=== PATIENT | male | born 1955 | race Caucasian/White ===

== ENCOUNTER 2023-03-13 10:52 | Outpatient (OUT) | payer BC, SELFPAY | END 2023-03-13 10:53 | disposition home or self-care (01) | LOC: LAB 10:57 | PROVIDERS: PCP Family Medicine; Visit Provider Urology | DX: C61 Malignant neoplasm of prostate (principal); N40.0 Benign prostatic hyperplasia without lower urinary tract symptoms | CPT/HCPCS: 36415; 84153 ==

== ENCOUNTER 2023-12-12 13:02 | Outpatient (OUT) | payer BC, SELFPAY ==
[2023-12-12 13:41] LABS: Basophils Absolute Auto 0.1 10^3/uL (0.0-0.1); Basophils Percent Auto 0.8 % (0.2-2.0); Eosinophils Absolute Auto 0.3 10^3/uL (0.0-0.7); Eosinophils Percent Auto 3.8 % (0.9-7.0); Hematocrit 43.9 % (42.0-54.0); Hemoglobin 14.7 g/dL (14.0-18.0); Immature Granulocytes Abs Auto 0.01 10^3/uL (0.00-0.03); Immature Granulocytes Pct Auto 0.1 % (0.0-0.5); Lymphocytes Absolute Auto 2.1 10^3/uL (1.2-3.8); Lymphocytes Percent Auto 25.2 % (20.5-60.0); Mean Corpuscular HGB Conc 33.5 g/dL (29.9-35.2); Mean Corpuscular Hemoglobin 29.9 pg (25.9-34.0); Mean Corpuscular Volume 89.4 fL (80.0-94.0); Mean Platelet Volume 10.1 fL (9.5-13.5); Monocytes Absolute Auto 0.5 10^3/uL (0.3-0.8); Monocytes Percent Auto 6.3 % (1.7-12.0); Neutrophils Absolute Auto 5.3 10^3/uL (1.4-6.5); Neutrophils Percent Auto 63.8 % (43.0-75.0); Platelet Count 248 10^3/uL (150-450); Red Blood Count 4.91 10^6/uL (4.70-6.10); Red Cell Distribution Width 13.1 % (11.0-15.0); White Blood Count 8.3 10^3/uL (4.0-11.0)
[2023-12-12 14:16] LABS: Estimated Average Glucose 123 mg/dL; Glycohemoglobin A1C 5.9 % (4.5-6.2)
[2023-12-12 14:28] LABS: Alanine Aminotransferase 36 U/L (16-63); Albumin Globulin Ratio 1.1; Albumin Level 4.1 g/dL (3.4-5.0); Alkaline Phosphatase 70 U/L (46-116); Aspartate Amino Transferase 18 U/L (15-37); BUN Creatinine Ratio 27.5; Bilirubin Direct 0.2 mg/dL (0.0-0.2); Bilirubin Total 0.9 mg/dL (0.2-1.0); Calcium 9.7 mg/dL (8.5-10.1); Carbon Dioxide 29.3 mmol/L (21.0-32.0); Chloride 102 mmol/L (98-107); Chol HDL Ratio 3.9; Cholesterol 181 mg/dL (<=200); Estimated GFR (African America >60 (>=60); Estimated GFR (Non-African Ame >60 (>=60); Globulin 3.6 g/dL; Glucose 106 mg/dL (74-106); HDL Cholesterol 46 mg/dL (40-60); LDL Cholesterol Calculated 123.6 mg/dL; Potassium 3.3 mmol/L (3.5-5.1); Sodium 140 mmol/L (136-145); Thyroid Stimulating Hormone 0.671 uIU/mL (0.358-3.740); Total Protein 7.7 g/dL (6.4-8.2); Triglycerides 57 mg/dL (<=150); VLDL CHOLESTEROL 11.4 mg/dL
== END 2023-12-12 13:03 | disposition home or self-care (01) ==
LOC: LAB 13:04
PROVIDERS: PCP Family Medicine; Visit Provider Family Medicine
DX: Z00.00 Encounter for general adult medical examination without abnormal findings (principal)
CPT/HCPCS: 36415; 80048; 80061; 80076; 83036; 84443; 85025

== ENCOUNTER 2025-01-23 10:41 | Outpatient (OUT) | payer BC, SELFPAY ==
--- OUTSIDE RECORDS SUMMARY | 2025-01-23 09:45 | XMS_ITS | Encounter Summary ---
Author Organization [facility] Address [address] [place] [address] Care Team Providers Care Can Washer Name Role Phone Bienvenido George MD Primary Care Provider [phone] Reason for Visit * Reason Comments Annual Exam wellness Encounter Details Date Type Department Care Team (Late st Contact Info) Description 01/23/2025 9:45 AM EDT Office Visit [facility] [address] [place] [address] Bienvenido George MD [address] [place] [address] Annual physical exam (Primary Dx) Social History Tobacco Use Types Packs/Day Years Used Date Smoking Tobacco: Never Smokeless Tobacco: Never Sex and Gender Information Value Date Recorded Sex Assigned at Not on file Legal Sex Male 9:50 PM EDT Gender Identity Not on file Sexual Orientation Not on file documented as of this encounter Last Filed Vital Signs Vital Sign Reading Time Taken Comments Blood Pressure 134/76 01/23/2025 9:49 AM EDT Pulse 72 01/23/2025 9:49 AM EDT Temperature 36.4 C (97.5 F) 01/23/2025 9:49 AM EDT Respiratory Rate 22 01/23/2025 9:49 AM EDT Oxygen Saturation 97% 01/23/2025 9:49 AM EDT Inhaled Oxygen Concentration - - Weight 87.5 kg (193 lb) 01/23/2025 9:49 AM EDT Height 175.3 cm (5' 9 ) 01/23/2025 9:49 AM EDT Body Mass Index 28.5 01/23/2025 9:49 AM EDT documented in this encounter Progress Notes * Bienvenido George MD - 01/23/2025 10:24 AM EDTAssociated Problem(s): Annual physical exam Due for labs. Discussed proper diet and regular aerobic exercise. Need aerobic exercise 5-6 days a week for 30 minutes at a time. Smaller portions and limit total calories. Colonoscopy every 10 years. Tetanus every 10 years. Advised not to smoke. * Bienvenido George MD - 01/23/2025 9:45 AM EDT Images from the original note were not included. Subjective Patient ID: Casimiro Crowley is a 69 y.o. male who presents for Annual Exam (wellness). Presents for annual PE. Patient feels well today. Weight down 3 pounds in past year. Active around house and with yard work. Tries to walk regularly. Changed diet and cut back on carbs. Tries to watch diet and eat healthy. Increased fruits and vegetables. Smaller portions and limits snacking. Triesto limit total daily calories. Due for labs. Checking BP PRN and typically controlled. BP normal today. Taking medication daily and tolerating without side effects. Following with urology for prostate cancer and had radiation. Doing well and PSA undetectable. Review of Systems Constitutional: Negative for fatigue. Respiratory: Negative for cough, shortness of breath and wheezing. Cardiovascular: Negative for chest pain and palpitations. Gastrointestinal: Negative for abdominal pain, diarrhea, nausea and vomiting. Genitourinary: Negative for dysuria. Objective Physical Exam Constitutional: General: He is not in acute distress. Appearance: Normal appearance. HENT: Head: Normocephalic. Right Ear: Tympanic membrane and ear canal normal. Left Ear: Tympanic membrane and ear canal normal. Eyes: Extraocular Movements: Extraocular movements intact. Pupils: Pupils are equal, round, and reactive to light. Cardiovascular: Rate and Rhythm: Normal rate and regular rhythm. Heart sounds: No murmur heard. No friction rub. No gallop. Pulmonary: Breath sounds: Normal breath sounds. No wheezing, rhonchi or rales. Abdominal: General: Bowel sounds are normal. There is no distension. Palpations: Abdomen is soft. Tenderness: There is no abdominal tenderness. There is no guarding or rebound. Musculoskeletal: General: Normal range of motion. Left lower leg: No edema. Neurological: General: No focal deficit present. Mental Status: He is alert. Cranial Nerves: No cranial nerve deficit. Deep Tendon Reflexes: Reflexes normal. Assessment/Plan Problem List Items Addressed This Visit Annual physical exam - Primary Due for labs. Discussed proper diet and regular aerobic exercise. Need aerobic exercise 5-6 days a week for 30 minutes at a time. Smaller portions and limit total calories. Colonoscopy every 10 years. Tetanus every 10 years. Advised not to smoke. Relevant Orders Hemoglobin A1c Basic metabolic panel CBC and differential Hepatic function panel Lipid panel TSH documented in this encounter Plan of Treatment Upcoming Encounters Date Type Department Care Team (Late st Contact Info) Description 01/26/2026 9:00 AM EDT Office Visit [facility] [address] [place] [address] Bienvenido George MD [address] [place] [address] Scheduled Orders Name Type Priority Associated Diagnoses Orde r Schedule Hemoglobin A1c Lab Routine Annual physical exam Expected: 01/23/2025 (Approximate), Expires: 01/23/2026 Basic metabolic panel Lab Routine Annual physical exam Expected: 01/23/2025 (Approximate), Expires: 01/23/2026 CBC and differential Lab Routine Annual physical exam Expected: 01/23/2025 (Approximate), Expires: 01/23/2026 Hepatic function panel Lab Routine Annual physical exam Expected: 01/23/2025 (Approximate), Expires: 01/23/2026 Lipid panel Lab Routine Annual physical exam Expected: 01/23/2025 (Approximate), Expires: 01/23/2026 TSH Lab Routine Annual physical exam Expected: 01/23/2025 (Approximate), Expires: 01/23/2026 documented as of this encounter Visit Diagnoses Diagnosis Annual physical exam- Primary Routine general medical examination at a health care facility documented in this encounter Additional Health Concerns Assessment Noted Time PHQ-9 Depression Total Score: 0 12/12/19 11:00 AM EDT documented as of this encounter Care Teams Can Washer Relationship Specialty Start Date End Date Bienvenido George MD [address] [place] [address] PCP - General Family Medicine 12/12/23 documented as of this encounter
--- OUTSIDE RECORDS SUMMARY | 2025-01-23 10:45 | XMS_ITS ---
Author Organization [facility] Address [address] [place], [place] [id number] Care Team Providers Care Operations Vocational Instructor Name Role Phone Omari Cb Mckeon Jr. Unavailable [phone] Bienvenido George MD Primary Care Provider [phone] Active Problems No known active problems Current Treatment and Therapy Plans No current plan information found. Past Treatment and Therapy Plans No past plan information found. Treatment Summaries Prostate cancer (HCC)* Treatment Summary and Survivorship Care Plan for Prostate Cancer Provided by: Brionna York APRN.BRUSH OR BROOM CUTTER General Information Patient Name: Casimiro Crowley Patient : 1955 Patient phone: Email: No e-mail address on record Health Care Providers Primary Care Provider: Bienvenido George MD Urologic Surgeon: Dr. Jean Marie Rosa; Dr. Cb Salcido Radiation Oncologist: Dr. Fredrick Moran Other Providers: Brionna York APRN.BRUSH OR BROOM CUTTER Treatment Summary Diagnosis Cancer Type: Adenocarcinoma of the Prostate Location: Left mid; Right mid Diagnosis Date (year): November 19, 2020 Histology Subtype: Prostate Cancer Stage:I; Clinical stage T1c, N0, M0 Dalton Score: 3+3=6 PSA at Diagnosis: 7.2 Clinical Trial: No Treatment Completed Surgery: Yes Surgery Date(s) (year): November 19, 2020 Surgical procedure/location/findings: Transrectal ultrasound biopsy; Left mid; Right mid; Adenocarcinoma of Prostate External beam radiation: No Brachytherapy to prostate: Yes: End Date (year): April 04, 2021 Prostate brachytherapy, I-125, 100 seeds, 145 Gy Systemic Therapy (chemotherapy, hormonal therapy, other): No Presistent symptoms or side effects at completion of treatment: No Follow-up Care Plan Schedule of clinical visits Coordinating Provider When/How often Dr. Fredrick Moran Every 6 months x2 years, then once yearly Dr. Cb Salcido Per Dr. Omari Rosa Per Dr. Rosa Cancer surveillance or other recommended related tests Coordinating Provider Test How Often Dr. Fredrick Moran PSA (Prostate Specific Antigen) Every 6 months x2 years, then once yearly Dr. Cb Salcido PSA (Prostate Specific Antigen) Per Dr. Omari Rosa PSA (Prostate Specific Antigen) Per Dr. Rosa Please continue to see your primary care provider for all general health care recommended for a (man) (women) your age, including cancer screening tests. Any symptoms should be brought to the attention of your provider: 1. Anything that represents a brand new symptom; 2. Anything that represents a persistent symptom; 3. Anything you are worried about that might be related to the cancer coming back. Possible late- and long-term effects that someone with this type of cancer and treatment may experience: Erectile dysfunction, Incontinence, Painful urination, Rectal pain, Shortening of the penis, Skin irritation or darkening, Sterility, Tirdness, Trouble voiding or passing uring (urinary retention), and Urinary frequency Cancer survivors may experience issues with the areas listed below. If you have any concerns in these or other areas, please speak with your doctors or nurses to find out how you can get help with them: anxiety or depression , emotional or mental health, fatigue, fertility, financial advice or assistance, insurance, memory or concentration loss, parenting, physicial functioning, school/work, and sexual functioning A number of lifestyle/behaviors can affect your ongoing health, including the risk for the cancer coming back or developing another cancer. Discuss these recommendations with your doctor or nurse: alcohol use, diet, management of medications, management of other illnesses, physical activity, sun screen use, tobacco use/cessation, and weight management (loss/gain) Resources you may be interested in: www.cancer.net [employer].com [employer] Facilities Manager Art Therapy Support Groups- Contact [employer] for dates and time. Prepared by: Brionna York APRN.BRUSH OR BROOM CUTTER Delivered on: October 14, 2021 - This Survivorship Care Plan is a cancer treatment summary and follow-up plan is provided to you to keep with your health care records and to share with your primary care provider. - This summary is a brief record of major aspects of your cancer treatment. You can share your copywith any of your doctors or nurses. However, this is not a detailed or comprehensive record of yourcare. Resolved Problems Problem Noted Date Diagnosed Date Resolved Date Prostate cancer 10/14/2021 04/19/2023
--- OUTSIDE RECORDS SUMMARY | 2025-01-23 10:45 | XMS_ITS | Encounter Summary ---
Author Organization [facility] Address [address] [place] [address] Care Team Providers Care Clinic Physician Director Name Role Phone Bienvenido George MD Primary Care Provider [phone] Encounter Details Date Type Department Care Team (Late st Contact Info) Description 01/23/2025 Bamboo flowsheet [facility] [address] [place] [id number] Bienvenido George MD [address] [place] [phone] Social History Tobacco Use Types Packs/Day Years Used Date Smoking Tobacco: Never Smokeless Tobacco: Never Sex and Gender Information Value Date Recorded Sex Assigned at Not on file Legal Sex Male 9:50 PM EDT Gender Identity Not on file Sexual Orientation Not on file documented as of this encounter Plan of Treatment Upcoming Encounters Date Type Department Care Team (Late st Contact Info) Description 01/26/2026 9:00 AM EDT [facility] [address] [place] [address] Bienvenido George MD [address] [place] [address] documented as of this encounter Visit Diagnoses Not on filedocumented in this encounter Additional Health Concerns Assessment Noted Time PHQ-9 Depression Total Score: 0 12/12/19 24 11:00 AM EDT documented as of this encounter Care Teams Clinic Physician Director Relationship Specialty Start Date End Date Bienvenido George MD [address] [place] [address] PCP - General Family Medicine 12/12/23 documented as of this encounter
--- OUTSIDE RECORDS SUMMARY | 2025-01-23 10:45 | XMS_ITS | Clinical Summary ---
Author Organization [facility] Address [address] [place], [place] [address] Care Team Providers Care Rn Home Care Name Role Phone Cb Salcido Jr. Unavailable [phone] Bienvenido George MD Primary Care Provider [phone] Allergies No known active allergies Medications amLODIPine (NORVASC) 10 mg tablet 11/16/2020 Active lisinopril-hydroCH LOROthiazide (PRINZIDE, ZESTORETIC) 20-25 mg per tablet 11/16/2020 Activ e Active Problems No known active problems Resolved Problems Problem Noted Date Diagnosed Date Resolved Date Prostate cancer 10/14/2021 04/19/2023 Immunizations Immunization Administration Dates Next Due COVID-19 original vaccine, f ull dose, monovalent (MODERNA) 12/11/2020,11/13/2020 Social History Tobacco Use Types Packs/Day Years Used Date Smoking Tobacco: Never Smokeless Tobacco: Never Tobacco Cessation:Counseling Given: Not Answered Alcohol Use Standard Drinks/Week Comments Yes 0 (1 standard drink = 0.6 oz pur e alcohol) social PHQ-2 Answer Date Recorded PHQ-2 score 0 04/10/2024 Area Deprivation Index Answer Date Ezekiel rded National Score (1-100), lower number is lower ri sk 76 04/12/2023 State Score (1-10), lower number is lower risk 6 04/12/2023 Data from: https://www.neighborhoodatlas.medicine.[facility].edu/. Last address used for calculation [address] 04/12/2023 Sex and Gender Information Value Date Recorded Sex Assigned at Not on file Legal Sex Male 11:37 AM EDT Gender Identity Not on file Sexual Orientation Not on file Last Filed Vital Signs Vital Sign Reading Time Taken Comments Blood Pressure 167/82 04/10/2024 9:48 AM EDT Pulse 76 04/10/2024 9:48 AM EDT Temperature 36.4 C (97.6 F) 04/10/2024 9:48 AM EDT Respiratory Rate 18 04/10/2024 9:48 AM EDT Oxygen Saturation 98% 04/10/2024 9:48 AM EDT Inhaled Oxygen Concentration - - Weight 88.6 kg (195 lb 5.2 oz) 04/10/2024 9:48 A M EDT Height 168.9 cm (5' 6.5 ) 12/30/2020 2:26 PM EDT Body Mass Index 31.05 12/30/2020 2:26 PM EDT Plan of Treatment Upcoming Encounters Date Type Department Care Team (Late st Contact Info) Description 04/09/2025 9:45 AM EDT Office Visit [facility] [address] [place] [address] [place] [address] lab 04/23/2025 10:15 AM EDT Office Visit Radiation Oncology [address] [address] Damien Moran MD [address] [place] [address] [place] [address] 1yr f/u psa here Health Maintenance Due Date Last Done Comments Anxiety Screening 02/24/1974 Depression Screening 02/24/1974 Hepatitis C Screening 02/24/1974 DTaP,Tdap,Td Vaccine (1 - Tdap) 02/24/1975 Lipid Screening 02/24/1991 CT Colonography 02/24/2001 Cologuard (FIT-DNA) 02/24/2001 Colonoscopy 02/24/2001 Colorectal Cancer Screening 02/24/2001 Diabetes Screening 02/24/2001 Fecal Occult Blood 02/24/2001 Sigmoidoscopy 02/24/2001 Pneumococcal Vaccine: 50+ (1 of 1 - PCV) 02/24/2006 Shingrix Vaccine (1 of 2) 02/24/2006 Covid-19 Vaccine (2023-2 5 season) 2024 06/04/2022, 12/18/2021, 06/18/2021, Additional history exists Advance Directive Discussion 07/24/2024 Influenza Vaccine (#1) 2025 Prostate Cancer Screening Discussion 03/19/2029 03/19/2024, 04/11/2022, 01/26/2022, Additional history exists RSV Vaccine (1 - 1-dose 75+ series) 02/24/2031 Procedures Procedure Name Priority Date/Time Associated Diagnosis Comments PSA/PROSTSPECAG DIAG Routine 03/19/2024 11:04 AM EDT History of prostate cancer from Last 3 Months or Most Recently Relevant to Health Maintenance Results * PSA/PROSTSPECAG DIAG (03/19/2024 11:04 AM EDT) PSA 0.17 <2.60 ng/mL 03/19/2024 6:37 PM EDT [facility] Comment:Total PSA test metho dology used is the Electrochemiluminescence Immunoassay by [employer]. Total PSA values by differing methodologies cannot be interchanged. Blood BLOOD SPECIMEN / Unknown Venipuncture / Unknown 03/19/2024 11:04 AM EDT 03/19/2024 11:04 AM EDT us G Will Moran MD LABORATORY Final Resul t [facility] [address] [address], [place] from Last 3 Months or Most Recently Relevant to Health Maintenance Insurance BLUE CARD PPO OOS Care Teams Rn Home Care Relationship Specialty Start Date End Date Naderer, Bienvenido A, MD [address] [place] [address] PCP - General Family Medicine 12/30/20 Cb Salcido Jr. [address] [place] [place] [address] Referring Urology 12/15/20
[2025-01-23 11:27] LABS: Hematocrit 45.0 % (42.0-54.0); Hemoglobin 15.2 g/dL (14.0-18.0); Immature Granulocytes Abs Auto 0.01 10^3/uL (0.00-0.03); Immature Granulocytes Pct Auto 0.2 % (0.0-0.5); Lymphocytes Absolute Auto 1.8 10^3/uL (1.2-3.8); Mean Corpuscular HGB Conc 33.8 g/dL (29.9-35.2); Mean Corpuscular Hemoglobin 30.3 pg (25.9-34.0); Mean Corpuscular Volume 89.6 fL (80.0-94.0); Platelet Count 241 10^3/uL (150-450); Red Blood Count 5.02 10^6/uL (4.70-6.10); White Blood Count 6.3 10^3/uL (4.0-11.0)
[2025-01-23 11:39] LABS: Alanine Aminotransferase 29 U/L (16-63); Albumin Globulin Ratio 1.1; Albumin Level 3.8 g/dL (3.4-5.0); Alkaline Phosphatase 67 U/L (46-116); Anion Gap 16.5; Aspartate Amino Transferase 16 U/L (15-37); Blood Urea Nitrogen 27.0 mg/dL (7.0-18.0); Calcium 9.4 mg/dL (8.5-10.1); Carbon Dioxide 25.3 mmol/L (21.0-32.0); Chloride 106 mmol/L (98-107); Cholesterol 164 mg/dL (<=200); Estimated GFR (African America >60 (>=60 mL/min/1.73m^2); Estimated GFR (Non-African Ame >60 (>=60 mL/min/1.73m^2); Globulin 3.6 g/dL; Glucose 112 mg/dL (74-106); HDL Cholesterol 46 mg/dL (40-60); Potassium 3.8 mmol/L (3.5-5.1); Sodium 144 mmol/L (136-145); Thyroid Stimulating Hormone 0.620 uIU/mL (0.358-3.740); Total Protein 7.4 g/dL (6.4-8.2); Triglycerides 63 mg/dL (<=150); VLDL CHOLESTEROL 12.6 mg/dL
== END 2025-01-23 10:42 | disposition home or self-care (01) ==
PROVIDERS: PCP Family Medicine; Visit Provider Family Medicine
DX: Z00.00 Encounter for general adult medical examination without abnormal findings (principal)
CPT/HCPCS: 36415; 80048; 80061; 80076; 83036; 84443; 85025

== ENCOUNTER 2025-04-03 10:03 | Outpatient (OUT) | payer BC, SELFPAY ==
--- OUTSIDE RECORDS SUMMARY | 2025-04-03 10:07 | XMS_ITS | Encounter Summary ---
Author Organization [facility] Address [address] [facility] [place] [address] Care Team Providers Care Shoulder Puncher Name Role Phone Bienvenido George MD Primary Care Provider [phone] Encounter Details Date Type Department Care Team (Late st Contact Info) Description 01/23/2025 Results Follow-Up [facility] [place] [facility] [address] [facility] [address] [place] [address] Bienvenido George MD [address] [place] [address] ALL CBC WITH AUTO DIFF, HMHP LIVER PANEL, ALL BASIC METABOLIC PANEL, Additional followed-up results: 3 Social History Tobacco Use Types Packs/Day Years Used Date Smoking Tobacco: Never Smokeless Tobacco: Never Sex and Gender Information Value Date Recorded Sex Assigned at Not on file Legal Sex Male 9:50 PM EDT Gender Identity Not on file Sexual Orientation Not on file documented as of this encounter Plan of Treatment Not on file documented as of this encounter Visit Diagnoses Not on filedocumented in this encounter Additional Health Concerns Assessment Noted Time PHQ-9 Depression Total Score: 0 12/12/19 24 11:00 AM EDT documented as of this encounter Care Teams Shoulder Puncher Relationship Specialty Start Date End Date Bienvenido George MD PCP - General Family Medicine 12/12/23 documented as of this encounter
--- OUTSIDE RECORDS SUMMARY | 2025-04-03 10:07 | XMS_ITS | Clinical Summary ---
Author Organization [facility] Address [address] [place], [place] [address] Care Team Providers Care Calender Worker Helper Name Role Phone Cb Salcido Jr. Unavailable [phone] Bienvenido George MD Primary Care Provider [phone] Allergies No known active allergies Medications amLODIPine [...] is lower risk 6 04/12/2023 Data from: https://www.neighborhoodatlas.medicine.[facility].edu/. Last address used for calculation [address] [...] Care Team (Late st Contact Info) Description 04/23/2025 10:15 AM EDT Office Visit Radiation Oncology [address] [place] [address] Damien Moran MD [address] [place] [address] [place] [address] 1yr f/u psa here Health Maintenance Due Date Last Done Comments Anxiety Screening 02/24/1974 Depression Screening 02/24/1974 Hepatitis C Screening 02/24/1974 DTaP,Tdap,Td Vaccine (1 - Tdap) 02/24/1975 Lipid Screening 02/24/1991 CT Colonography 02/24/2001 Cologuard (FIT-DNA) 02/24/2001 Colonoscopy 02/24/2001 Colorectal Cancer Screening 02/24/2001 Fecal Occult Blood 02/24/2001 Sigmoidoscopy 02/24/2001 Pneumococcal Vaccine: 50+ (1 of 1 - PCV) 02/24/2006 Shingrix Vaccine (1 of 2) 02/24/2006 Advance Directive Discussion 07/24/2024 Influenza Vaccine (#1) 2025 Diabetes Screening 01/24/2028 01/23/2025 RSV Vaccine (1 - 1-dose 75+ series) 02/24/2031 Procedures Procedure Name Priority Date/Time Associated Diagnosis Comments PSA/PROSTSPECAG DIAG Routine 03/26/2025 2:40 PM EDT History of prostate cancer from Last 3 Months Results * PROSTATE-SPECIFIC ANTIGEN DIAGNOSTIC (03/26/2025 2:40 PM EDT) PSA 0.15 <2.60 ng/mL 03/27/2025 3:26 PM EDT [facility] Comment:Total PSA test metho dology used is the Electrochemiluminescence Immunoassay by [employer]. Total PSA values by differing methodologies cannot be interchanged. Blood BLOOD SPECIMEN / Unknown Venipuncture / Unknown 03/26/2025 2:40 PM EDT 03/26/2025 2:40 PM EDT us G Will Moran MD LABORATORY Final Resul t [facility] [address] [facility] [address] [place] [address], [place] from Last 3 Months Insurance BLUE CARD PPO OOS Care Teams Calender Worker Helper Relationship Specialty Start Date End Date Bienvenido George MD [address] [place] [address] PCP - General Family Medicine 12/30/20 Cb Salcido Jr. [address] [place] [address] Referring Urology 12/15/20
--- OUTSIDE RECORDS SUMMARY | 2025-04-03 10:07 | XMS_ITS | Clinical Summary ---
Author Organization [facility] Address [address] [place] [address] Care Team Providers Care Insurance Policy Issue Clerk Name Role Phone Bienvenido George MD Primary Care Provider [phone] Allergies No known active allergies Medications amLODIPine (Norvasc) 10 MG tabletIndications :Essential (primary) hypertension,[place] gn essential hypertension TAKE 1 TABLET BY MOUTH EVERY DAY 90 tablet 3 07/18/2024 Active lisinopril-hydroC HLOROthiazide 20-25 MG tabletIndications :Essential hypertension, benign TAKE 1 TABLET BY MOUTH EVERY DAY 90 tablet 3 01/28/2025 Active Active Problems Problem Noted Date Diagnosed Date Essential hypertension, benign 12/12/2023 Assessment & Plan (12/12/2023 12:13 PM EDT): BP controlled and monitor PRN. Prediabetes 12/12/2023 History of prostate cancer 12/12/2023 Assessment & Plan (12/12/2023 12:14 PM EDT): PSA undetectable and follow with urology. Annual physical exam 12/12/2023 Assessment & Plan (01/23/2025 10:24 AM EDT): Due for labs. Discussed proper diet and regular aerobic exercise. Need aerobic exercise 5-6 days a week for 30 minutes at a time. Smaller portions and limit total calories. Colonoscopy every 10 years. Tetanus every 10 years. Advised not to smoke. Assessment & Plan (12/12/2023 12:13 PM EDT): Due for labs. Discussed proper diet and regular aerobic exercise. Need aerobic exercise 5-6 days a week for 30 minutes at a time. Smaller portions and limit total calories. Colonoscopy every 10 years. Tetanus every 10 years. Advised not to smoke. Discussed daily Aspirin therapy. Encounters Date Type Department Care Team Description 01/28/2025 [facility] [address] [facility] [place] [phone] Bienvenido George MD Essential hypertension, benign 01/23/2025 9:45 AM EDT [facility] [address] [facility] [place] [address] Bienvenido George MD Annual physical exam (Primary Dx) 01/23/2025 Results Follow-Up [facility] [address] [facility] [place] [address] Bienvenido George MD ALL CBC WITH AUTO DIFF, HMHP LIVER PANEL, ALL BASIC METABOLIC PANEL, Additional followed-up results: 3 01/23/2025 Clinisync Result Encounter [facility] External Department Unsolicited Bienvenido George MD 01/23/2025 Bamboo flowsheet [facility] [address] [place] [phone] Bienvenido George MD from Last 3 Months Social History Tobacco Use Types Packs/Day Years Used Date Smoking Tobacco: Never Smokeless Tobacco: Never Tobacco Cessation:Counseling Given: Not Answered Sex and Gender Information Value Date Recorded [...] Mass Index 28.5 01/23/2025 9:49 AM EDT Plan of Treatment Health Maintenance Due Date Last Done Comments CT Colonography 1955 FIT-DNA 1955 FIT 1955 FOBT 1955 Sigmoidoscopy 1955 Pneumococcal Vaccine: 65+ Years (1 of 1 - PCV) 006 Influenza Vaccine (#1) 2025 Colonoscopy 06/10/2025 06/10/2015 Colorectal Cancer Screening 06/10/2025 Procedures Procedure Name Priority Date/Time Associated Diagnosis Comments TSH Routine 01/23/2025 12:38 PM EDT Annual physical exam LIPID PANEL Routine 01/23/2025 12:38 PM EDT Annual physical exam HEPATIC FUNCTION PANEL Routine 01/23/2025 12:38 PM EDT Annual physical exam CBC (INCLUDES DIFF/PLT) Routine 01/23/2025 12:38 PM EDT Annual physical exam BASIC METABOLIC PANEL Routine 01/23/2025 12:38 PM EDT Annual physical exam HEMOGLOBIN A1C Routine 01/23/2025 12:38 PM EDT Annual physical exam MLR HEMOGLOBIN A1C Routine 01/23/2025 11 :03 AM EDT ALL THYROID STIM HORMONE Routine 01/23/2025 11:03 AM EDT ALL LIPID PROFILE (FASTING) Routine 01/23/2025 11:03 AM EDT ALL BASIC METABOLIC PANEL Routine 01/23/2025 11:03 AM EDT HMHP LIVER PANEL Routine 01/23/2025 11:0 3 AM EDT ALL CBC WITH AUTO DIFF Routine 01/23/2025 11:03 AM EDT from Last 3 Months Results * CBC and differential (01/23/2025 12:38 PM EDT) Blood Venous blood specimen / Unknown Bienvenido George MD LAB BLOOD ORDERABLES Final Resul t Performing Organization Address [facility] de Phone Number [facility] * TSH (01/23/2025 12:38 PM EDT) Blood Venous blood specimen / Unknown Bienveindo George MD LAB BLOOD ORDERABLES Final Resul t Performing Organization Address [facility] de Phone Number [facility] * Hemoglobin A1c (01/23/2025 12:38 PM EDT) Blood Venous blood specimen / Unknown Bienvenido George MD LAB BLOOD ORDERABLES Final Resul t Performing Organization Address [facility] de Phone Number [facility] * Hepatic function panel (01/23/2025 12:38 PM EDT) Blood Venous blood specimen / Unknown Bienvenido George MD LAB BLOOD ORDERABLES Final Resul t Performing Organization Address [facility] de Phone Number [facility] * Lipid panel (01/23/2025 12:38 PM EDT) Blood Venous blood specimen / Unknown Bienvenido George MD LAB BLOOD ORDERABLES Final Resul t Performing Organization Address [facility] de Phone Number [facility] * Basic metabolic panel (01/23/2025 12:38 PM EDT) Blood Venous blood specimen / Unknown Bienvenido George MD LAB BLOOD ORDERABLES Final Resul t Performing Organization Address [facility] de Phone Number [facility] * MLR HEMOGLOBIN A1C (01/23/2025 11:03 AM EDT) GLYCOHEMOGLOBIN A1C 5.8 4.5 - 6.2 % TBH Comment: ADA RECOMMENDED LIMIT 4.0 - 6.0 ADA THERAPEUTIC TARGET < 7.0 ACTION SUGGESTED > 7.0 ESTIMATED AVERAGE GLUCOSE 120 mg/dL TBH 01/23/2025 11:0 3 AM EDT 01/23/2025 11:06 AM EDT Narrative CLINISYNC - 01/23/2025 11:45 AM EDT Bienvenido LEWISISYVIANCA Final Result Performing Organization Address [facility] Co de Phone Number CLINJOSUEMI TB * (ABNORMAL) [facility] LIVER PANEL (01/23/2025 11:03 AM EDT) BILIRUBIN TOTAL 1.1(H) 0.2 - 1.0 mg/dL TBH BILIRUBIN DIRECT 0.2 0.0 - 0.2 mg/dL TBH ASPARTATE AMINO TRANSFERASE 16 15 - 37 U/L TBH ALANINE AMINOTRANSFERASE 29 16 - 63 U/L TBH ALKALINE PHOSPHATASE 67 46 - 116 U/L TBH TOTAL PROTEIN 7.4 6.4 - 8.2 g/dL TBH ALBUMIN LEVEL 3.8 3.4 - 5.0 g/dL TBH GLOBULIN 3.6 g/dL TBH ALBUMIN GLOBULIN RATIO 1.1 TBH 01/23/2025 11:0 3 AM EDT 01/23/2025 11:06 AM EDT Narrative CLINISYNC - 01/23/2025 11:45 AM EDT Bienvenido HENLEY Final Result Performing Organization Address [facility] Co de Phone Number LESTERMI TB * ALL THYROID STIM HORMONE (01/23/2025 11:03 AM EDT) THYROID STIMULATING HORMONE 0.620 0.358 - 3.740 uIU/mL TBH 01/23/2025 11:0 3 AM EDT 01/23/2025 11:06 AM EDT Narrative CLINISYNC - 01/23/2025 11:45 AM EDT Bienvenido LEWISISYVIANCA Final Result Performing Organization Address [facility] Co de Phone Number CLINISYNC TB * ALL LIPID PROFILE (FASTING) (01/23/2025 11:03 AM EDT) TRIGLYCERIDES 63 <=150 mg/dL TBH CHOLESTEROL 164 <=200 mg/dL TB HDL CHOLESTEROL 46 40 - 60 mg/dL TB Comment: > or =60 mg/dl - LOW CARDIOVASCULAR RISK <40 mg/dl - HIGH CARDIOVASCULAR RISK LDL CHOLESTEROL CALCULATED 105.4 mg/dL TB Comment: <100 mg/dl OPTIMAL 100-129 mg/dl NEAR OR ABOVE OPTIMAL 130-159 mg/dl BORDERLINE HIGH 160-189 mg/dl HIGH >190 mg/dl VERY HIGH VLDL CHOLESTEROL 12.6 mg/dL TB CHOL HDL RATIO 3.6 TB Comment: 3.3 - 4.4 LOW RISK 4.4 - 7.1 AVERAGE RISK 7.1 - 11.0 MODERATE RISK >11.0 HIGH RISK 01/23/2025 11:0 3 AM EDT 01/23/2025 11:06 AM EDT Narrative CLINISYNC - 01/23/2025 11:45 AM EDT Bienvenido HENLEY Final Result Performing Organization Address [facility] de Phone Number CLINISYNC TB * (ABNORMAL) ALL CBC WITH AUTO DIFF (01/23/2025 11:03 AM EDT) TB WBC 6.3 4.0 - 11.0 10 3/uL TBH TB RBC 5.02 4.70 - 6.10 10 6/uL TBH TBH HGB 15.2 14.0 - 18.0 g/dL TB TB HCT 45.0 42.0 - 54.0 % TBH TBH MCV 89.6 80.0 - 94.0 fL TBH TBH MCH 30.3 25.9 - 34.0 pg TBH TBH MCHC 33.8 29.9 - 35.2 g/dL TB TB RDW 13.0 11.0 - 15.0 % TBH TBH PLT 241 150 - 450 10 3/uL TBH TBH MPV 10.3 9.5 - 13.5 fL TBH NEUTROPHILS PERCENT AUTO 54.6 43.0 - 75.0 % TBH LYMPHOCYTES PERCENT AUTO 28.5 20.5 - 60.0 % TBH MONOCYTES PERCENT AUTO 8.4 1.7 - 12.0 % TBH TBH EO % 7.4(H) 0.9 - 7.0 % TBH BASOPHILS PERCENT AUTO 0.9 0.2 - 2.0 % TBH IMMATURE GRANULOCYTES PCT AUTO 0.2 0.0 - 0.5 % TBH NEUTROPHILS ABSOLUTE AUTO 3.5 1.4 - 6.5 10 3/uL TBH LYMPHOCYTES ABSOLUTE AUTO 1.8 1.2 - 3.8 10 3/uL TBH MONOCYTES ABSOLUTE AUTO 0.5 0.3 - 0.8 10 3/uL TBH TBH EO # 0.5 0.0 - 0.7 10 3/uL TBH BASOPHILS ABSOLUTE AUTO 0.1 0.0 - 0.1 10 3/uL TBH IMMATURE GRANULOCYTES ABS AUTO 0.01 0.00 - 0.03 10 3/uL TBH 01/23/2025 11:0 3 AM EDT 01/23/2025 11:06 AM EDT Narrative CLINISYNC - 01/23/2025 11:29 AM EDT Bienvenido George MD CLINISYNC Final Result [facility] * (ABNORMAL) ALL BASIC METABOLIC PANEL (01/23/2025 11:03 AM EDT) SODIUM 144 136 - 145 mmol/L TBH POTASSIUM 3.8 3.5 - 5.1 mmol/L TBH CHLORIDE 106 98 - 107 mmol/L TBH CARBON DIOXIDE 25.3 21.0 - 32.0 mmol/L TBH ANION GAP 16.5 TBH GLUCOSE 112(H) 74 - 106 mg/dL TBH BLOOD UREA NITROGEN 27.0(H) 7.0 - 18.0 mg/dL TBH CREATININE 0.96 0.70 - 1.30 mg/dL TBH TBH EGFR-AF [place] >60 >=60 mL/min/1.7 3m 2 TBH TBH EGFR-NON AF [place] >60 >=60 mL/min/1.7 3m 2 TBH BUN CREATININE RATIO 28.1 TBH CALCIUM 9.4 8.5 - 10.1 mg/dL TBH 01/23/2025 11:0 3 AM EDT 01/23/2025 11:06 AM EDT Narrative CLINISYNC - 01/23/2025 11:45 AM EDT Bienvenido George MD CLINISYVIANCA Final Result CLINISYNC TB from Last 3 Months [id number] [address] Care Teams Insurance Policy Issue Clerk Relationship Specialty Start Date End Date Bienvenido George MD PCP - General Family Medicine 12/12/23
--- OUTSIDE RECORDS SUMMARY | 2025-04-03 10:07 | XMS_ITS ---
Author Organization [facility] Address [address] [place], [place] [id number] Care Team Providers Care Director Child Development Center Name Role Phone Omari Cb Mckeon Jr. Unavailable [phone] Bienvenido George MD Primary Care Provider [phone] Active Problems No known active problems Current Treatment and Therapy Plans No current plan information found. Past Treatment and Therapy Plans No past plan information found. Treatment Summaries Prostate cancer (HCC)* Treatment Summary and Survivorship Care Plan for Prostate Cancer Provided by: Brionna York APRN.FUR BLOWING MACHINE ATTENDANT General Information Patient Name: Casimiro Crowley Patient : 1955 Patient phone: Email: No e-mail address on record Health Care Providers Primary Care Provider: Bienvenido George MD Urologic Surgeon: Dr. Jean Marie Rosa; Dr. Cb Salcido Radiation Oncologist: Dr. Fredrick Moran Other Providers: Brionna York APRN.FUR BLOWING MACHINE ATTENDANT Treatment Summary Diagnosis Cancer Type: Adenocarcinoma of the Prostate Location: Left mid; Right mid Diagnosis Date (year): November 19, 2020 Histology Subtype: Prostate Cancer Stage:I; Clinical stage T1c, N0, M0 [place] Score: 3+3=6 PSA at Diagnosis: 7.2 Clinical [...] you may be interested in: [email or web address] Client Support Coordinator Heel Spr[employer] Art Therapy Support Groups- Contact Client Support Coordinator for dates and time. Prepared by: Brionna York APRN.FUR BLOWING MACHINE ATTENDANT Delivered on: October 14, 2021 - This [...]
--- OUTSIDE RECORDS SUMMARY | 2025-04-03 10:20 | XMS_ITS | CCD ---
Author Organization [facility] Care Team Providers Care Photographer Scientific Name Role Phone Cb Salcido Jr. Unavailable Bienvenido Macias Primary Care Provider KITTY Ibrahim, DR MARCOS Admitting Unavailable KITTY ., DR MARCOS Attending Unavailable BIENVENIDO MACIAS Primary Care Unavailable KITTY ., DR MARCOS Consulting Unavailable BIENVENIDO MACIAS Admitting Unavailable BIENVENIDO MACIAS Attending Unavailable BIENVENIDO MACIAS Primary Care Unavailable BIENVENIDO MACIAS Consulting Unavailable BIENVENIDO MACIAS Primary Care Physician Cb Salcido Jr. Unavailable Bienvenido Macias Primary Care Provider Bienvenido Macias MD Primary Care Provider Bienvenido Macias MD Unavailable BIENVENIDO MACIAS Attending Unavailable BIENVENIDO MACIAS Primary Care Unavailable Damien MORAN Referring Unavailable Damien MORAN Attending Unavailable BIENVENIDO MACIAS Primary Care Unavailable JEAN MARIE ROSA Referring Unavailable Jean Marie ROSA Attending Unavailable Jean Marie ROSA Attending Unavailable Medications Current Medications Medication Drug Class(es) Dates Sig (Normalized) Sig (Original) amLODIPine 10 mg oral tablet (13 sources) Dihydropyridine Calcium Channel [place] Start: 9 take 1 tablet by mouth once daily amLODIPine (Norvasc) 10 MG tablet Indications: Essential (primary) hypertension , Benign essential hypertension TAKE 1 TABLET BY MOUTH EVERY DAY 90 tablet 3 07/18/2024 Active hydroCHLOROthiazide 25 mg / lisinopril 20 mg oral tablet (13 sources) Thiazide Diuretic, Angiotensin Converting Enzyme Inhibitor Start: 1 lisinopril-hydro CHLOROthiazide (PRINZIDE, ZESTORETIC) 20-25 mg per tablet 11/16/2020 Active Start: 02-26-2019 take 1 tablet by sandeep th once daily hydrochlorothiazide-lisinopril 25 mg-20 mg Tab 1 tab(s), Oral, Daily Start Date: 02/26/19 Status: Ordered Repeat number: 1 Problems Active Problems Problem Classification Problem Date Documented Da te Episodic/Chronic Calculus of urinary tract (3 sources) Kidney stone 02-26-2019 Episodic Cancer of prostate (16 sources) Malignant tumor of prostate; Translations: [Malignant neoplasm of prostate] Onset: 10-14-2021 Resolved: 04-19-2023 Chronic Cancer of prostate (13 sources) Personal history of malignant neoplasm of prostate; Translations: [History of malignant neoplasm of prostate] Onset: 03-22-2023 Episodic Essential hypertension (8 sources) Hypertensive disorder; Translations: [Benign essential hypertension] Onset: 12-12-2023 02-26-2019 Chronic Genitourinary symptoms and ill-defined conditions (5 sources) Delay when starting to pass urine; Translations: [Microscopic hematuria] Onset: 04-02-2025 04-07-2021 Episodic Hyperplasia of prostate (7 sources) Benign prostatic hyperplasia without lower urinary tract symptoms; Translations: [Benign prostatic hypertrophy without outflow obstruction] Onset: 01-30-2022 Chronic Other screening for suspected conditions (not mental disorders or infectious disease) (3 sources) Raised prostate specific antigen 02-26-2019 Episodic Past or Other Problems Problem Classification Problem Date Documented Da te Episodic/Chronic Diabetes mellitus without complication (5 sources) Prediabetes; Translations: [Prediabetes] Onset: 12-12-2023 12-12-2023 Episodic Mood disorders (5 sources) Mood disorders Onset: 12-12-2023 12-12-2023 Results Test Name Value Interpretation Reference Range Facility Ambulatory Visit Summaryon 0 04-02-2025 Ambulatory Visit Summary Ambulatory Visit Summary DARIN CHRISTINE Mercado :1955 Visit Date:04/02/2025 Ambulatory Visit Instructions Your Diagnosis History of prostate cancer BPH (benign prostatic hyperplasia) Microscopic hematuria Your Care Team Attending Physician - KITTY PINEDO, Jean Marie Khan Primary Care Physician - BIENVENIDO MACIAS MD This Is Your Medications List Contact prescribing physician if questions or concerns amlodipine (amLODIPine 10 mg Tab) hydrochlorothiazide-lisinop ril (hydrochlorothiazide-lisino pril 25 mg-20 mg Tab) Procedures Performed Brachytherapy (03/04/2021), Transrectal biopsy of prostate (11/19/2020), Trus/bx (03/11/2019), ESWL of kidney (12/01/2014), Vasectomy (1989), Tonsillectomy. Discharge Vitals Heart Rate (Peripheral) 77 Blood Pressure 146/102 Height 177 cm Height 70 in Weight 90.8 kg Weight 200.179 lb BMI 28.98 What to do next You Need to Schedule the Following Appointments Follow Up with KITTY PINEDO, MICHAEL Austin When: Comments: 1 yr w/ PSA Where: [address] [place] [address] [place] [address] Medications What How Much When Instructions Unchanged amlodipine (amLODIPine 10 mg Tab) 1 Tablets By Mouth Every day Contact prescribing physician if questions or concerns Unchanged hydrochlorothiazide-lisinop ril (hydrochlorothiazide-lisino pril 25 mg-20 mg Tab) 1 Tablets By Mouth Every day Contact prescribing physician if questions or concerns Allergies No Known Allergies Problems Ongoing - Any problem that you are currently receiving treatment for. BPH (benign prostatic hyperplasia) Elevated PSA History of prostate cancer Hypertension Microscopic hematuria Prostate cancer Renal calculus Urinary hesitancy Patient Survey You may receive a survey via text or e-mail asking about your office visit. Please share your experience with us by completing your survey. We appreciate your feedback and thank you for choosing us for your care. Education Materials Hematuria, Adult Hematuria is blood in the urine. Blood may be visible in the urine, or it may be identified with a test. This condition can be caused by infections of the bladder, urethra, kidney, or prostate. Other possible causes include: ??? Kidney stones. ??? Cancer of the urinary tract. ??? Too much calcium in the urine. ??? Conditions that are passed from parent to child (inherited conditions). ??? Exercise that requires a lot of energy. Infections can usually be treated with medicine, and a kidney stone usually will pass through your urine. If neither of these is the cause of your hematuria, more tests may be needed to identify the cause of your symptoms. It is very important to tell your health care provider about any blood in your urine, even if it is painless or the blood stops without treatment. Blood in the urine, when it happens and then stops and then happens again, can be a symptom of a very serious condition, including cancer. There is no pain in the initial stages of many urinary cancers. Follow these instructions at home: Medicines ??? Take syck-zkp-[id number] and prescription medicines only as told by your health care provider. ??? If you were prescribed an antibiotic medicine, take it as told by your health care provider. Do not stop taking the antibiotic even if you start to feel better. Eating and drinking ??? Drink enough fluid to keep your urine pale yellow. It is recommended that you drink 3???4 quarts (2.8???3.8 L) a day. If you have been diagnosed with an infection, drinking cranberry juice in addition to large amounts of water is recommended. ??? Avoid caffeine, tea, and carbonated beverages. These tend to irritate the bladder. ??? Avoid alcohol because it may irritate the prostate (in males). General instructions ??? If you have been diagnosed with a kidney stone, follow your health care provider's instructions about straining your urine to catch the stone. ??? Empty your bladder often. Avoid holding urine for long periods of time. ??? If you are female: ? After a bowel movement, wipe from front to back and use each piece of toilet paper only once. ? Empty your bladder before and after sex. ??? Pay attention to any changes in your symptoms. Tell your health care provider about any changes or any new symptoms. ??? It is up to you to get the results of any tests. Ask your health care provider, or the department that is doing the test, when your results will be ready. ??? Keep all follow-up visits. This is important. Contact a health care provider if: ??? You develop back pain. ??? You have a fever or chills. ??? You have nausea or vomiting. ??? Your symptoms do not improve after 3 days. ??? Your symptoms get worse. Get help right away if: ??? You develop severe vomiting and are unable to take medicine without vomiting. ??? You develop severe pain in your back or abdo (more content not included)... Normal [place] [facility] Ambulatory Visit Summary Ambulatory Visit Summary CHRISTINE WEBSTER :1955 Visit Date:04/02/2025 Ambulatory Visit Instructions Your Diagnosis History of prostate cancer BPH (benign prostatic hyperplasia) Microscopic hematuria Your Care Team Attending Physician - Jean Marie ROSA MD Primary Care Physician - BIENVENIDO MACIAS MD This Is Your Medications List Contact prescribing physician if questions or concerns amlodipine (amLODIPine 10 mg Tab) hydrochlorothiazide-lisinop ril (hydrochlorothiazide-lisino pril 25 mg-20 mg Tab) Procedures Performed Brachytherapy (03/04/2021), Transrectal biopsy of prostate (11/19/2020), Trus/bx (03/11/2019), ESWL of kidney (12/01/2014), Vasectomy (1989), Tonsillectomy. Discharge Vitals Heart Rate (Peripheral) 77 Blood Pressure 146/102 Height 177 cm Height 70 in Weight 90.8 kg Weight 200.179 lb BMI 28.98 What to do next You Need to Schedule the Following Appointments Follow Up with KITTY PINEDO, Jean Marie Khan, URL When: Comments: 1 yr w/ PSA Where: [address] [place] [address] [place] [address] Medications What How Much When Instructions Unchanged amlodipine (amLODIPine 10 mg Tab) 1 Tablets By Mouth Every day Contact prescribing physician if questions or concerns Unchanged hydrochlorothiazide-lisinop ril (hydrochlorothiazide-lisino pril 25 mg-20 mg Tab) 1 Tablets By Mouth Every day Contact prescribing physician if questions or concerns Allergies No Known Allergies Problems Ongoing - Any problem that you are currently receiving treatment for. BPH (benign prostatic hyperplasia) Elevated PSA History of prostate cancer Hypertension Microscopic hematuria Prostate cancer Renal calculus Urinary hesitancy Patient Survey You may receive a survey via text or e-mail asking about your office visit. Please share your experience with us by completing your survey. We appreciate your feedback and thank you for choosing us for your care. Education Materials Hematuria, Adult Hematuria is blood in the urine. Blood may be visible in the urine, or it may be identified with a test. This condition can be caused by infections of the bladder, urethra, kidney, or prostate. Other possible causes include: ??? Kidney stones. ??? Cancer of the urinary tract. ??? Too much calcium in the urine. ??? Conditions that are passed from parent to child (inherited conditions). ??? Exercise that requires a lot of energy. Infections can usually be treated with medicine, and a kidney stone usually will pass through your urine. If neither of these is the cause of your hematuria, more tests may be needed to identify the cause of your symptoms. It is very important to tell your health care provider about any blood in your urine, even if it is painless or the blood stops without treatment. Blood in the urine, when it happens and then stops and then happens again, can be a symptom of a very serious condition, including cancer. There is no pain in the initial stages of many urinary cancers. Follow these instructions at home: Medicines ??? Take olox-bld-yyojvhb and prescription medicines only as told by your health care provider. ??? If you were prescribed an antibiotic medicine, take it as told by your health care provider. Do not stop taking the antibiotic even if you start to feel better. Eating and drinking ??? Drink enough fluid to keep your urine pale yellow. It is recommended that you drink 3???4 quarts (2.8???3.8 L) a day. If you have been diagnosed with an infection, drinking cranberry juice in addition to large amounts of water is recommended. ??? Avoid caffeine, tea, and carbonated beverages. These tend to irritate the bladder. ??? Avoid alcohol because it may irritate the prostate (in males). General instructions ??? If you have been diagnosed with a kidney stone, follow your health care provider's instructions about straining your urine to catch the stone. ??? Empty your bladder often. Avoid holding urine for long periods of time. ??? If you are female: ? After a bowel movement, wipe from front to back and use each piece of toilet paper only once. ? Empty your bladder before and after sex. ??? Pay attention to any changes in your symptoms. Tell your health care provider about any changes or any new symptoms. ??? It is up to you to get the results of any tests. Ask your health care provider, or the department that is doing the test, when your results will be ready. ??? Keep all follow-up visits. This is important. Contact a health care provider if: ??? You develop back pain. ??? You have a fever or chills. ??? You have nausea or vomiting. ??? Your symptoms do not improve after 3 days. ??? Your symptoms get worse. Get help right away if: ??? You develop severe vomiting and are unable to take medicine without vomiting. ??? You develop severe pain in your back or abdo (more content not included)... Normal [place] [facility] Urology Office/Clinic Noteon 04-02-2025 Urology Office/Clinic Note Urology Office/Clinic Note Chief Complaint 1 yr w/ PSA HPI Staff 1 yr with PSA d/t hx of prostate cancer s/p brachytherapy 03/04/21 No uro meds Prev PSA: 03/19/24- 0.17 Current PSA 03/26/25- 0.15 IPSS: 6 Denies dysuria, denies visible blood in urine (moderate on UA), denies any other urinary complaints at this time History of Present Illness Tests reviewed: reviewed UA, PSA I have reviewed the previous health record information and history for this patient from Dr. Rosa. I have reviewed and verified the staff HPI to be accurate for this encounter. Review of Systems PHQ Score Initial Depression Screen Score: 0 SCORE ROS - Provider Constitutional: denies weight loss, denies hot flashes. Eyes: denies eye problems. Gastrointestinal: denies nausea, denies vomiting. Cardiovascular: denies chest pain or angina. Integumentary: no dryness Musculoskeletal: denies musculoskeletal symptoms. ENMT: denies otolaryngeal symptoms. Respiratory: no shortness of breath. Heme/Lymph: denies easy bleeding tendency, denies easy bruising tendency. Psychiatric: no confusion, no anxiety. Genitourinary: See HPI. Physical Exam Vitals & Measurements HR: 77(Peripheral) BP: 146/102 HT: 70 in HT: 177 cm WT: 90.8 kg WT: 200.179 lb BMI: 28.98 General Appearance: alert, no distress, well nourished, well developed male. Assessment/Plan 1. History of prostate cancer (Z85.46: Personal history of malignant neoplasm of prostate) PSA: 07/14/21 - 1.18 01/26/22 - 0.62 03/13/23 - 0.30 03/19/24 - 0.17 03/26/25 - 0.15 TRUS/bx 11/19/20 - [place] 6 (3+3). S/P brachytherapy 03/04/21. PSA low and stable. Will cont to monitor. -F/u in 1 yr w/ PSA 2. BPH (benign prostatic hyperplasia) (N40.0: Benign prostatic hyperplasia without lower urinary tract symptoms) IPSS 6 (4). No BPH meds. No bother with urination. 3. Microscopic hematuria (R31.29: Other microscopic hematuria) UA shows moderate blood. Denies gross hematuria. Discussed radiation cystitis. No recent urologic imaging. Advised pt we need to confirm if hematuria is true with further evaluation. -Urine sample to be submitted for microscopic evaluation, order provided (geosciences associate professor already came to office today, pt will be going to [facility]). If >3 RBC, will proceed with hematuria workup (cysto, imaging, and cytol/FISH). Will call pt with results. Follow-up With When Contact Information KITTY PINEDO, Jean Marie Khan, URL [address] [place] [address] [place] [address] Additional Instructions: 1 yr w/ PSA Patient Education Hematuria, Adult I, Dary Mukherjee, personally scribed for Dr. Rosa on 04/02/2025 14:08:32. . Documentation recorded by the scribe, Dary Mukherjee, accurately reflects the services(s) I performed and decisions made by me. Authenticated by Dr. Rosa on 04/02/2025 14:10:32. Problem List/Past Medical History Ongoing BPH (benign prostatic hyperplasia) Elevated PSA History of prostate cancer Hypertension Microscopic hematuria Prostate cancer Renal calculus Urinary hesitancy Historical No qualifying data Procedure/Surgical History Brachytherapy (03/04/2021), Transrectal biopsy of prostate (11/19/2020), Trus/bx (03/11/2019), ESWL of kidney (12/01/2014), Vasectomy (1989), Tonsillectomy. Medications amLODIPine 10 mg Tab, 10 mg= 1 tab(s), Oral, Daily hydrochlorothiazide-lisinop ril 25 mg-20 mg Tab, 1 tab(s), Oral, Daily Allergies No Known Allergies Social History Alcohol - Low Risk, 02/26/2019 Current, 1-2 times per year, 02/26/2019 Tobacco - Denies Tobacco Use, 02/26/2019 Never (less than 100 in lifetime) Tobacco Use:. Never Smokeless Tobacco Use:., 04/02/2025 Family History Diabetes: Mother. Myocardial infarct: Father. Immunizations Vaccine Date Status Comments SARS-CoV-2 (COVID-19) mRNAMUL.[id number] 06/04/2022 Recorded SARS-CoV-2 (COVID-19) mRNA-1273 vaccine 12/18/2021 Recorded SARS-CoV-2 (COVID-19) Ad26 vaccine 06/18/2021 Recorded SARS-CoV-2 (COVID-19) mRNA-1273 vaccine 12/11/2020 Recorded SARS-CoV-2 (COVID-19) mRNA-1273 vaccine 11/20/2020 Recorded SARS-CoV-2 (COVID-19) mRNA-1273 vaccine 11/13/2020 Recorded influenza virus vaccine, inactivated - Not Given Postpone due to refusal influenza virus vaccine, live, trivalent - Not Given Patient Refuses Lab Results Ambulatory Point of Care Results Bilirubin Urine Dipstick: Negative (04/02/25 13:22:00) Blood Urine Dipstick: 2+ Moderate (04/02/25 13:22:00) Glucose Urine Dipstick: Negative (04/02/25 13:22:00) Ketones Urine Dipstick: Negative (04/02/25 13:22:00) Leukocytes Urine Dipstick: Negative (04/02/25 13:22:00) Nitrite Urine Dipstick: Negative (04/02/25 13:22:00) Protein Urine Dipstick: Negative (04/02/25 13:22:00) Specific [place] Urine Dipstick: 1.020 (04/02/25 13:22:00) Urine Appearance Urine Dipstick: Clear (04/02/25 13:22:00) Urine Color Urine Dipstick: Yellow (04/02/25 13:22:00) Urobilinogen Urin (more content not included)... Normal [place] Comment on above: Result Comment: Elec tronically Signed By: Jean Marie ROSA MD\.br\Date and Time Signed: 04/02/25 14:10 EDT\.br\Electronically Co-Signed By: Mukherjee, Dary B\.br\Date and Time Co-Signed: 04/02/25 14:08 EDT PSA SerPl-mCncon 03-26-2025 Prostate specific Ag [Mass/Vol] 0.15 ng/mL Normal <2.60 [facility] Comment on above: Order Comment: Speci men Type: BLOOD SPECIMEN Ordering Facility: [facility] Address: [address] [place] [address] Result Comment: Tota l PSA test methodology used is the Electrochemiluminescence Immunoassay by [employer]. Total PSA values by differing methodologies cannot be interchanged. Performed By: #### 2 [id number] #### [facility] CLIA [id number] [address] [place] [address] [place] [address] [place] ALL CBC WITH AUTO DIFFon BASOPHILS ABSOLUTE AUTO 0.1 [facility] Basophils/100 WBC (Bld) 0.9 % 0.2 - 2.0 % [facility] Eosinophils/100 WBC (Bld) 7.4 % High 0.9 - 7.0 % [facility] Erythrocyte distribution width (RBC) [Ratio] 13 % 11.0 - 15.0 % [facility] Hematocrit (Bld) [Volume fraction] 45 % 42.0 - 54.0 % [facility] Hemoglobin (Bld) [Mass/Vol] 15.2 g/dL 14.0 - 18.0 g/dL [facility] IMMATURE GRANULOCYTES ABS AUTO 0.01 [facility] Immature granulocytes/100 WBC (Bld) 0.2 % 0.0 - 0.5 % [facility] Interpretation and review of laboratory results Abnormal [facility] LYMPHOCYTES ABSOLUTE AUTO 1.8 [facility] Lymphocytes/100 WBC (Bld) 28.5 % 20.5 - 60.0 % [facility] MCH (RBC) [Entitic mass] 30.3 pg 25.9 - 34.0 pg [facility] MCHC (RBC) [Mass/Vol] 33.8 g/dL 29.9 - 35.2 g/dL [facility] MCV (RBC) [Entitic vol] 89.6 fL 80.0 - 94.0 fL [facility] MONOCYTES ABSOLUTE AUTO 0.5 [facility] Monocytes/100 WBC (Bld) 8.4 % 1.7 - 12.0 % [facility] NEUTROPHILS ABSOLUTE AUTO 3.5 [facility] Neutrophils/100 WBC (Bld) 54.6 % 43.0 - 75.0 % [facility] Platelet mean volume (Bld) [Entitic vol] 10.3 fL 9.5 - 13.5 fL [facility] EO # 0.5 [facility] PLT 241 [facility] RBC 5.02 [facility] WBC 6.3 [facility] CNOVon 04-10-2024 CNOV Office Visit (RADTSA ) CHRISTINE WEBSTER ([id number]) 1955 M Date Time Provider Department 04/10/24 10:00 AM Damien MORAN During your visit today, we recorded the following information about you: Temperature Pulse Respiration Blood pressure 97.6 degrees 76/minute 18/minute 167/82 Weight 88.6 kg Marine Pavon RN 04/10/2024 9:54 AM Signed AUA 2 SHNAE Slater G Phillip, MD 04/10/2024 10:00 AM Signed Radiation Oncology - Follow Up Note PATIENT NAME: Christine Webster PATIENT DIAGNOSIS: Prostate adenocarcinoma, initial PSA 7.2, biopsy [place] score 3 + 3 = 6 (grade group 1), clinical stage T1c, N0, M0, stage I [cT1a-c/T2a, N0, M0, PSA <10, GG 1] (AJCC 8th ed.), s/p TRUS Random biopsy. Prostate cancer (C61), 2019 NCCN Risk Group: Low Risk Group RADIATION SUMMARY: 03/04/21 Prostate brachytherapy, I-125, 145 Gy INTERVAL HISTORY: Patient doing well denies significant new problems or concerns. PSA HISTORY: 03/13/23: 0.30 PSA (ng/mL) Date Value 03/19/2024 0.17 04/11/2022 0.43 04/12/2021 3.86 PSA. (no units) Date Value 01/26/2022 0.62 07/13/2021 1.18 ALLERGIES No Known Allergies amLODIPine (NORVASC) 10 mg tablet lisinopril-hydroCHLOROthiaz jeison (PRINZIDE, ZESTORETIC) 20-25 mg per tablet REVIEW OF SYSTEMS: D/N = 5-6/1-2 Hematuria: none Dysuria: none Incontinence: none Urgency: mild Catheter use: none Medications to aid urination: no - Total AUA Score: 2 Bowel movement frequency: 1/day Bowel movement quality: normal Blood per rectum: none PHYSICAL EXAM: BP 167/82 Pulse 76 Temp 36.4 ?C (97.6 ?F) Resp 18 Wt 88.6 kg (195 lb 5.2 oz) SpO2 98% BMI 31.05 kg/m? KPS:100 General appearance: Alert and oriented. No acute distress. Rectal exam def Extremities: No deformities, edema, skin discoloration, clubbing or cyanosis. Lymph Nodes: No cervical lymphadenopathy, No supraclavicular lymphadenopathy, No axillary lymphadenopathy. Skin: Skin color, texture, turgor normal, no suspicious rashes or lesions. ASSESSMENT/PLAN: Prostate adenocarcinoma, initial PSA 7.2, biopsy P[place] score 3 + 3 = 6 (grade group 1), clinical stage T1c, N0, M0, stage I [cT1a-c/T2a, N0, M0, PSA <10, GG 1] (AJCC 8th ed.), s/p TRUS Random biopsy. Prostate cancer (C61), 2019 NCCN Risk Group: Low Risk Group status post I-125 brachytherapy 03/04/2021 Doing well. PSA remains low. No significant post treatment related issues. Okay. I will plan to see patient back again in 1 year for follow-up. Signed by: Damien Moran MD cc: Bienvenido Macias MD ([facility]) [address] [place] [address] Portions of the above note extracted and edited from previous visit as well as active information included in the EMR. Referring Provider: Damien MORAN [[id number]] Allergies As of Date: 04/10/2024 (No Known Allergies) Date Reviewed: 04/10/2024 Reviewed by: Marine Pavon RN - Fully Assessed Reason for Visit: Prostate Cancer [590] Primary Visit Diagnosis:History of prostate cancer [Z85.46] Order(s):PROSTATE-SPECIFIC ANTIGEN DIAGNOSTIC [SQPSA] Order #: [id number] FUTURE Prescriptions as of 04/10/2024 - amLODIPine (NORVASC) 10 mg tablet - lisinopril-hydroCHLOROthiaz jeison (PRINZIDE, ZESTORETIC) 20-25 mg per tablet Problem List As Of Date 04/10/2024 Noted Resolved Prostate cancer (HCC) [C61] 10/14/2021 04/19/2023 Visit Notes: >> Marine Pavno RN Wed Apr 10, 2024 9:50 AM Status: Signed AUA 2 Marine Pavon RN Disposition: Return in about 1 year (around 04/10/2025). Follow-up and Disposition History for Encounter Date Provider Department Center 04/10/2024 [id number] MORAN [facility] Encounter Status:Closed by Damien MORAN on 04/10/24 Normal [facility] PSA SERPL-MCNCon 024 [facility] PSA SERPL-MCNC 0.17 ng/mL [facility]. [facility]/mL [facility] Comment on above: Total PSA test metho dology used is the Electrochemiluminescence Immunoassay by [employer]. Total PSA values by differing methodologies cannot be interchanged. Specimen Type: BLOOD SPECIMEN Ordering Facility: [facility] Address: [address] [place] [address] Original [facility]ing [facility]: [facility]FFon 11-30-2022 BASO # 0.1 103/ul Normal 0.0-0.1 [facility] Comment on above: Performed By: #### C BC #### [facility] [address], [place] [address] Dr. Eleuterio Martins Basophils/100 WBC (Bld) 0.6 % Normal 0.2-2.0 [facility] Comment on above: Performed By: #### C BC #### [facility] [address] [place] [address] Dr. Eleuterio Martins EO # 0.4 103/ul Normal 0.0-0.7 [facility] Comment on above: Performed By: #### C BC #### [facility] [address] [place] [address] Dr. Eleuterio Martins Eosinophils/100 WBC (Bld) 4.7 % Normal 0.9-7.0 [facility] Comment on above: Performed By: #### C BC #### [facility] [address] [place] [address] Dr. Eleuterio Martins Erythrocyte distribution width (RBC) [Ratio] 13.2 % Normal 11.0-15.0 [facility] Comment on above: Performed By: #### C BC #### [facility] [address] [place] [address] Dr. Eleuterio Martins Hematocrit (Bld) [Volume fraction] 43.9 % Normal 42.0-54.0 [facility] Comment on above: Performed By: #### C BC #### [facility] [address] [place] [address] Dr. Eleuterio Martins Hemoglobin (Bld) [Mass/Vol] 14.5 g/dL Normal 14.0-18.0 [facility] Comment on above: Performed By: #### C BC #### [facility] [address] [place] [address] Dr. Eleuterio Martins IG # 0.04 10e3/ul Critically high 0.00-0.03 [facility] Comment on above: Performed By: #### C BC #### [facility] [address] [place] [address] Dr. Eleuterio Martins IG % 0.5 % Normal 0.0-0.5 [facility] Comment on above: Performed By: #### C BC #### [facility] [address] [place] [address] Dr. Eleuterio Martins LYMPH # 2.2 103/ul Normal 1.2-3.8 [facility] Comment on above: Performed By: #### C BC #### [facility] [address] [place] [address] Dr. Eleuterio Martins Lymphocytes/100 WBC (Bld) 27.0 % Normal 20.5-60.0 [facility] Comment on above: Performed By: #### C BC #### [facility] [address] [place] [address] Dr. Eleuterio Martins MANUAL DIFF REQ NO Normal [facility] Comment on above: Performed By: #### C BC #### [facility] [address] [place] [address] Dr. Eleuterio Martins MCH (RBC) [Entitic mass] 29.6 pg Normal 25.9-34.0 [facility] Comment on above: Performed By: #### C BC #### [facility] [address] [place] [address] Dr. Eleuterio Martins MCHC (RBC) [Mass/Vol] 33.0 g/dL Normal 29.9-35.2 [facility] Comment on above: Performed By: #### C BC #### [facility] [address] [place] [address] Dr. Eleuterio Martins MCV (RBC) [Entitic vol] 89.6 fL Normal 80.0-94.0 [facility] Comment on above: Performed By: #### C BC #### [facility] [address] [place] [address] Dr. Eleuterio Martins MONO # 0.6 103/ul Normal 0.3-0.8 [facility] Comment on above: Performed By: #### C BC #### [facility] [address] [place] [address] Dr. Eleuterio Martins Monocytes/100 WBC (Bld) 7.5 % Normal 1.7-12.0 [facility] Comment on above: Performed By: #### C BC #### [facility] [address] [place] [address] Dr. Eleuterio Martins NEUT # 5.0 103/ul Normal 1.4-6.5 [facility] Comment on above: Performed By: #### C BC #### [facility] [address] [place] [address] Dr. Eleuterio Martins Neutrophils/100 WBC (Bld) 59.7 % Normal 43.0-75.0 [facility] Comment on above: Performed By: #### C BC #### [facility] [address] [place] [address] Dr. Eleuterio Martins Platelet mean volume (Bld) [Entitic vol] 9.8 fL Normal 9.5-13.5 [facility] Comment on above: Performed By: #### C BC #### [facility] [address] [place] [address] [address] Eleuterio Martins PLT 278 103/ul Normal 150-450 [facility] Comment on above: Performed By: #### C BC #### [facility] [address] [place] [address] Dr. Eleuterio Martins RBC 4.90 106/ul Normal 4.70-6.10 [facility] Comment on above: Performed By: #### C BC #### [facility] [address] [place] [address] Dr. Eleuterio Martins WBC 8.3 103/ul Normal 4.0-11.0 [facility] Comment on above: Performed By: #### C BC #### [facility] [address] [place] [address] Dr. Eleuterio Martins GLYCOHEMOGLOBIN A1Con 2022 ADA RECOMMENDATION SEE BELOW Normal [facility] Comment on above: Result Comment: ADA RECOMMENDED LIMIT 4.0 - 6.0 ADA THERAPEUTIC TARGET < 7.0 ACTION SUGGESTED > 7.0 Performed By: #### A 1C #### [facility] [address] [place] [address] Dr. Eleuterio Martins Glucose [Mass/Vol] 140 mg/dL Normal [facility] Comment on above: Performed By: #### A 1C #### [facility] [address] [place] [address] Dr. Eleuterio Martins HbA1c (Bld) [Mass fraction] 6.5 % Critically high 4.5-6.2 [facility] Comment on above: Performed By: #### A 1C #### [facility] [address] [place] [address] Dr. Eleuterio Martins LIPID PROFILEon 11-30-2022 CHOL-HDL RATIO NORM SEE BELOW Normal [facility] Comment on above: Result Comment: 3.3 - 4.4 LOW RISK 4.4 - 7.1 AVERAGE RISK 7.1 - 11.0 MODERATE RISK >11.0 HIGH RISK Performed By: #### L IPID, BMP, TSH, LIVER #### [facility] [address] [address] [address] Eleuterio Martins Cholesterol [Mass/Vol] 184 mg/dL Normal <=200 [facility] Comment on above: Performed By: #### L IPID, BMP, TSH, LIVER #### [facility] [address] [address] [address] Eleuterio Martins Cholesterol in HDL [Mass/Vol] 36 mg/dL Critically low 40-60 [facility] Comment on above: Performed By: #### L IPID, BMP, TSH, LIVER #### [facility] [address] [place] [address] Dr. Eleuterio Martins Cholesterol in LDL [Mass/Vol] 121.8 mg/dL Normal [facility] Comment on above: Performed By: #### L IPID, BMP, TSH, LIVER #### [facility] [address] [place] [address] Dr. Eleuterio Martins Cholesterol.total/ Cholesterol in HDL [Mass ratio] 5.1 {ratio} Normal [facility] Comment on above: Performed By: #### L IPID, BMP, TSH, LIVER #### [facility] [address] [address] [address] Eleuterio Martins HDL NORMAL > or = 60 mg/dl - LO W CARDIOVASCULAR RISK <40 mg/dl - HIGH CARDIOVASCULAR RISK Normal [facility] Comment on above: Performed By: #### L IPID, BMP, TSH, LIVER #### [facility] [address] [place] [address] Dr. Eleuterio Martins LDL CALC NORMAL SEE BELOW Normal [facility] Comment on above: Result Comment: <100 mg/dl OPTIMAL 100 - 129 mg/dl NEAR OR ABOVE OPTIMAL 130 - 159 mg/dl BORDERLINE HIGH 160 - 189 mg/dl HIGH >190 mg/dl VERY HIGH Performed By: #### L IPID, BMP, TSH, LIVER #### [facility] [address] [address] [address] Eleuterio Martins Triglyceride [Mass/Vol] 131 mg/dL Normal <=150 [facility] Comment on above: Performed By: #### L IPID, BMP, TSH, LIVER #### [facility] [address] [address] [address] Eleuterio Martins VLDL CALC 26.2 mg/dL Normal [facility] Comment on above: Performed By: #### L IPID, BMP, TSH, LIVER #### [facility] [address] [address] [address] Eleuterio Martins LIVER PROFILEon 11-30-2022 Albumin [Mass/Vol] 4.1 g/dL Normal 3.4-5.0 [facility] Comment on above: Performed By: #### L IPID, BMP, TSH, LIVER #### [facility] [address] [address] [address] Eleuterio Martins Albumin/Globulin [Mass ratio] 1.1 {ratio} Normal [facility] Comment on above: Performed By: #### L IPID, BMP, TSH, LIVER #### [facility] [address] [place] [address] Dr. Eleuterio Martins ALP [Catalytic activity/Vol] 94 U/L Normal 46-116 [facility] Comment on above: Performed By: #### L IPID, BMP, TSH, LIVER #### [facility] [address] [address] [address] Eleuterio Martins ALT [Catalytic activity/Vol] 42 U/L Normal 16-63 [facility] Comment on above: Performed By: #### L IPID, BMP, TSH, LIVER #### [facility] [address] [place] [address] Dr. Eleuterio Martins AST [Catalytic activity/Vol] 25 U/L Normal 15-37 [facility] Comment on above: Performed By: #### L IPID, BMP, TSH, LIVER #### [facility] [address] [place] [address] Dr. Eleuterio Martins BILI, CONJUGATED 0.1 mg/dL Normal 0.0-0.2 [facility] Comment on above: Performed By: #### L IPID, BMP, TSH, LIVER #### [facility] [address] [place] [address] Dr. Eleuterio Martins Bilirubin [Mass/Vol] 0.9 mg/dL Normal 0.2-1.0 [facility] Comment on above: Performed By: #### L IPID, BMP, TSH, LIVER #### [facility] [address] [place] [address] Dr. Eleuterio Martins Globulin (S) [Mass/Vol] 3.8 g/dL Normal [facility] Comment on above: Performed By: #### L IPID, BMP, TSH, LIVER #### [facility] [address] [place] [address] Dr. Eleuterio Martins Protein [Mass/Vol] 7.9 g/dL Normal 6.4-8.2 [facility] Comment on above: Performed By: #### L IPID, BMP, TSH, LIVER #### [facility] [address] [place] [address] Dr. Eleuterio Martins PROF CHEM 8 (BAS METB)on Anion gap [Moles/Vol] 12.1 mmol/L Normal [facility] Comment on above: Performed By: #### L IPID, BMP, TSH, LIVER #### [facility] [address] [place] [address] Dr. Eleuterio Martins Calcium [Mass/Vol] 9.6 mg/dL Normal 8.5-10.1 [facility] Comment on above: Performed By: #### L IPID, BMP, TSH, LIVER #### [facility] [address] [place] [address] Dr. Eleuterio Martins Chloride [Moles/Vol] 103 mmol/L Normal 98-107 [facility] Comment on above: Performed By: #### L IPID, BMP, TSH, LIVER #### [facility] [address] [place] [address] Dr. Eleuterio Martins CO2 [Moles/Vol] 29.6 mmol/L Normal 21.0-32.0 [facility] Comment on above: Performed By: #### L IPID, BMP, TSH, LIVER #### [facility] [address] [address] [address] Eleuterio Martins Creatinine [Mass/Vol] 1.11 mg/dL Normal 0.70-1.30 [facility] Comment on above: Performed By: #### L IPID, BMP, TSH, LIVER #### [facility] [address] [address] [address] Eleuterio Martins EGFR-AF LIBYAN >60 Normal >=60 [facility] Comment on above: Performed By: #### L IPID, BMP, TSH, LIVER #### [facility] [address] [place] [address] Dr. Eleuterio Martins EGFR-NON AF LIBYAN >60 Normal >=60 [facility] Comment on above: Performed By: #### L IPID, BMP, TSH, LIVER #### [facility] [address] [place] [address] Dr. Eleuterio Martins Glucose [Mass/Vol] 113 mg/dL Critically high 74-106 [facility] Comment on above: Performed By: #### L IPID, BMP, TSH, LIVER #### [facility] [address] [place] [address] Dr. Eleuterio Martins Potassium [Moles/Vol] 3.7 mmol/L Normal 3.5-5.1 [facility] Comment on above: Performed By: #### L IPID, BMP, TSH, LIVER #### [facility] [address] [place] [address] Dr. Eleuterio Martins Sodium [Moles/Vol] 141 mmol/L Normal 136-145 [facility] Comment on above: Performed By: #### L IPID, BMP, TSH, LIVER #### [facility] [address] [address] [address] Eleuterio Martins Urea nitrogen [Mass/Vol] 18.0 mg/dL Normal 7.0-18.0 [facility] Comment on above: Performed By: #### L IPID, BMP, TSH, LIVER #### [facility] [address], [place] [address] Dr. Eleuterio Martins Urea nitrogen/Creatinin e [Mass ratio] 16.2 mg/mg Normal [facility] Comment on above: Performed By: #### L IPID, BMP, TSH, LIVER #### [facility] [address], [place] [address] Dr. Eleuterio Martins TSHon 11-30-2022 TSH 0.885 uIU/mL Normal 0.358-3.740 [facility] Comment on above: Performed By: #### L IPID, BMP, TSH, LIVER #### [facility] [address], [place] [address] Dr. Eleuterio Martins XR chest 2V*on 05-08-2019 XR chest 2V* [facility] [place] [address] XRay Report Signed Patient: Christine Webster MR#: [id number] : 1955 Acct:[id number] Age/Sex: 64 / M ADM Date: 05/08/19 Loc: XDUC Room: Type: [facility] Attending Dr: DARLENE Negro APRN Ordering Provider: Dulce Proctor APRN, CNP Date of Service: 05/08/19 XR/XR chest 2V*: Cough Copies to: Dulce Proctor APRN, CNP Chest 05/08/2019. CLINICAL DATA: Cough and shortness of breath. FINDINGS: 2 views of the chest were obtained. No prior study is available for comparison. The cardiac silhouette is probably normal in size. The pulmonary vasculature is within normal limits. The lungs demonstrate mild chronic-appearing interstitial changes. No pulmonary consolidation or collapse is identified. The left hemidiaphragm is elevated. No pneumothorax or pleural effusion is seen. Degenerative changes are noted in the thoracic spine. XR/XR chest 2V* IMPRESSION: Mild chronic-appearing pulmonary interstitial changes and elevated left hemidiaphragm. Impression dictated by: Salvador Plunkett Jr., M.D.05/08/2019 11:15 AM Dictation Location: [id number] Transcribed By: SUSY 05/08/19 1115 Dictated By: Salvador Plunkett Jr, MD 05/08/19 1113 Signed By: 05/08/19 1115 [facility] Vital Signs Date Time Vital Sign Value Performing Clinician Facility 01-23-2025 09:49-0400 Body height 175.3 cm Bienvenido Macias MD Work Phone: [facility] 01-23-2025 09:49-0400 Body mass index (BMI) [Ratio] 28.5 kg/m2 Bienvenido Macias MD Work Phone: [facility] 01-23-2025 09:49-0400 Body temperature 97.5 [degF] Bienvenido Macias MD Work Phone: [facility] 01-23-2025 09:49-0400 Body weight 87.54 kg Bienvenido Macias MD Work Phone: [facility] 01-23-2025 09:49-0400 Diastolic blood pressure 76 mm[Hg] Bienvenido Macias MD Work Phone: [facility] 01-23-2025 09:49-0400 Heart rate 72 /min Bienvenido Macias MD Work Phone: [facility] 01-23-2025 09:49-0400 Respiratory rate 22 /min Bienvenido Macias MD Work Phone: [facility] 01-23-2025 09:49-0400 SaO2% (BldA) [Mass fraction] 97 % Bienvenido Macias MD Work Phone: [facility] 01-23-2025 09:49-0400 Systolic blood pressure 134 mm[Hg] Bienvenido Macias MD Work Phone: [facility] 04-10-2024 09:48-0400 Body mass index (BMI) [Ratio] 31.05 kg/m2 CHRISTOPH Moran MD Work Phone: [facility] 04-10-2024 09:48-0400 Body temperature 97.59 [degF] CHRISTOPH Moran MD Work Phone: [facility] 04-10-2024 09:48-0400 Body weight 88.6 kg CHRISTOPH Moran MD Work Phone: [facility] 04-10-2024 09:48-0400 Diastolic blood pressure 82 mm[Hg] CHRISTOPH Moran MD Work Phone: [facility] 04-10-2024 09:48-0400 Heart rate 76 /min CHRISTOPH Moran MD Work Phone: [facility] 04-10-2024 09:48-0400 Respiratory rate 18 /min CHRISTOPH Moran MD Work Phone: [facility] 04-10-2024 09:48-0400 SaO2% (BldA) [Mass fraction] 98 % CHRISTOPH Moran MD Work Phone: [facility] 04-10-2024 09:48-0400 Systolic blood pressure 167 mm[Hg] CHRISTOPH Moran MD Work Phone: [facility] 03-27-2024 13:22-0400 Blood Pressure Location Jean Marie ROSA [facility] 03-27-2024 13:22-0400 Diastolic blood pressure 100 mm[Hg] Jean Marie ROSA [facility] 03-27-2024 13:22-0400 Heart rate 78 /min Jean Marie ROSA [facility] 03-27-2024 13:22-0400 Respiratory rate 16 /min Jean Marie ROSA [facility] 03-27-2024 13:22-0400 Systolic blood pressure 150 mm[Hg] Jean Marie ROSA [facility] 03-22-2023 12:57-0400 Blood Pressure Location Jean Marie ROSA [facility] 03-22-2023 12:57-0400 Diastolic blood pressure 86 mm[Hg] Jean Marie ROSA [facility] 03-22-2023 12:57-0400 Heart rate 80 /min Jean Marie ROSA [facility] 03-22-2023 12:57-0400 Systolic blood pressure 148 mm[Hg] Jean Marie ROSA [facility] 04-13-2022 10:42-0400 Body temperature 98.29 [degF] CHRISTOPH Moran MD Work Phone: [facility] 04-13-2022 10:42-0400 Body weight 106.59 kg CHRISTOPH Moran MD Work Phone: [facility] 04-13-2022 10:42-0400 Diastolic blood pressure 84 mm[Hg] CHRISTOPH Moran MD Work Phone: [facility] 04-13-2022 10:42-0400 Heart rate 88 /min CHRISTOPH Moran MD Work Phone: [facility] 04-13-2022 10:42-0400 Respiratory rate 18 /min CHRISTOPH Moran MD Work Phone: [facility] 04-13-2022 10:42-0400 SaO2% (BldA) [Mass fraction] 95 % CHRISTOPH Moran MD Work Phone: [facility] 04-13-2022 10:42-0400 Systolic blood pressure 151 mm[Hg] CHRISTOPH Moran MD Work Phone: [facility] 10-14-2021 10:32-0400 Body temperature 97.11 [degF] CHRISTOPH Moran MD Work Phone: [facility] 10-14-2021 10:32-0400 Body weight 104.78 kg CHRISTOPH Moran MD Work Phone: [facility] 10-14-2021 10:32-0400 Diastolic blood pressure 90 mm[Hg] NA Luisa PINEDO Work Phone: [facility] 10-14-2021 10:32-0400 Heart rate 96 /min CHRISTOPH Moran MD Work Phone: [facility] 10-14-2021 10:32-0400 Respiratory rate 16 /min CHRISTOPH Moran MD Work Phone: [facility] 10-14-2021 10:32-0400 SaO2% (BldA) [Mass fraction] 95 % CHRISTOPH Moran MD Work Phone: [facility] 10-14-2021 10:32-0400 Systolic blood pressure 177 mm[Hg] NA Luisa PINEDO Work Phone: [facility] Encounters Encounter Date Encounter Type Care Provider Facility Start: 04-08-2026 ambulatory Jean Marie ROSA Facili ty:[facility] Start: 04-02-2025 End: 04-02-2025 ambulatory Jean Marie ROSA Facility:[facility] Start: 04-02-2025 End: 04-02-2025 Patient encounter procedure Jean Marie ROSA [facility] Start: 03-26-2025 End: 03-26-2025 ambulatory BIENVENIDO MACIAS Facility:[facility] Start: 01-23-2025 End: 01-23-2025 Bamboo flowsheet Bienvenido Macias MD Work Phone: [facility] Start: 01-23-2025 End: 01-23-2025 Bamboo flowsheet Bienvenido Macias MD Work Phone: [facility] Start: 01-23-2025 End: 01-23-2025 Clinisync Result Encounter Bienvenido Macias MD Work Phone: [facility] Department Unsolicited Start: 01-23-2025 End: 01-23-2025 Patient encounter procedure Bienvenido Macias MD Work Phone: [facility] Work Phone: Start: 01-23-2025 End: 01-23-2025 Periodic preventive med est patient 65yrs& older Bienvenido Macias MD Work Phone: [facility] Comment on above: Annual physical exam (Primary Dx) Start: 01-23-2025 End: 01-23-2025 ambulatory BIENVENIDO MACIAS Not Available Start: 04-10-2024 End: 04-10-2024 ambulatory BIENVENIDO MACIAS Facility:[facility] Start: 04-10-2024 End: 04-10-2024 Patient encounter procedure Damien Moran MD Work Phone: [facility] Comment on above: History of prostate cancer (Primary Dx) Start: 03-27-2024 End: 03-27-2024 Patient encounter procedure Jean Marie ROSA [facility] [employer] Start: 03-19-2024 End: 03-20-2024 Clinisync Result Encounter Generic External Data Provider [facility] Unsolicited Start: 03-19-2024 End: 03-20-2024 Clinisync Result Encounter Generic External Data Provider [facility] External [facility] Unsolicited Start: 12-12-2023 Patient encounter procedure Generic Provider [facility] Start: 03-22-2023 End: 03-22-2023 Patient encounter procedure Jean Marie ROSA [facility] Start: 12-03-2022 Encounter for genera l adult medical examination without abnormal findings BIENVENIDO MACIAS [facility] Start: 11-30-2022 End: 12-01-2022 ambulatory BIENVENIDO MACIAS Facility: Start: 11-30-2022 End: 12-01-2022 Encounter for general adult medical examination without abnormal findings BIENVENIDO MACIAS Facility:[facility] Start: 04-13-2022 End: 09-22-2022 Patient encounter procedure G Will Moran MD Work Phone: [facility] Comment on above: Malignant neoplasm o f prostate (HCC) (Primary Dx) Start: 04-05-2022 Telephone encounter G Will Moran MD Work Phone: [facility] Comment on above: Orders Start: 01-26-2022 End: 01-27-[address] JEAN MARIE ROSA . Facility: Start: 10-14-2021 End: 10-14-2021 ambulatory Brionna York APRN.SAW[employer] MANAGER Work Phone: Hematology/Oncology Comment on above: Prostate cancer (HCC ) Start: 10-14-2021 End: 10-14-2021 Patient encounter procedure Brionna York APRN.SAWMILL MANAGER Work Phone: [facility] Comment on above: Malignant neoplasm o f prostate (HCC) (Primary Dx) Procedures Date Procedure Procedure Detail Performing Clinician Start: 01-23-2025 ALL CBC WITH AUTO DIFF Bienvenido Macias MD Work Phone: Start: 03-19-2024 [facility] PSA SERPL[facility] Gene leyla External Data Provider Start: 01-26-2022 End: 01-26-2022 PSA screening [facility] Provider Comment on above: Performed By: #### P SAD #### [facility] [address] [place] [address] Dr. Eleuterio Martins Start: 10-14-2021 Adult depression scr eening assessment Brionna York APRN.SAWMILL MANAGER Work Phone: Start: 07-13-2021 PSA screening [facility] Provi pushpa Start: 03-04-2021 Brachytherapy Jean Marie DARDEN Start: 11-19-2020 Transrectal biopsy o f prostate Jean Marie ROSA Start: 03-11-2019 Trus/bx Jean Marie GONZALEZ Start: 06-10-2015 Colonoscopy Generic Pr ovider Start: 12-01-2014 Extracorporeal shock wave lithotripsy of calculus of kidney Jean Marie ROSA Start: 07-24-1989 Vasectomy Jean Marie GONZALEZ Tonsillectomy Jean Marie ROSA Plan of Treatment Date Care Activity Detail Author Start: 03-19-2029 Prostate specific antigen measurement Prostate Cancer Screening Discussion [facility] Start: 04-11-2027 PROSTATE CANCER SCREENING DISCUSSION PROSTATE CANCER SCREENING DISCUSSION [facility] Start: 07-13-2026 PROSTATE CANCER SCREENING DISCUSSION PROSTATE CANCER SCREENING DISCUSSION [facility] Start: 01-26-2026 End: 01-26-2026 Patient encounter procedure 01/26/2026 9:00 AM EDT [facility] [address] [place] [address] Bienvenido Macias MD [address] [place] [address] [facility] Start: 06-10-2025 Screening for malign ant neoplasm of colon [facility] Start: 04-10-2025 End: 07-10-2025 Prostate specific Ag [Mass/volume] in Serum or Plasma PROSTATE-SPECIFIC ANTIGEN DIAGNOSTIC Lab Routine History of prostate cancer Expected: 04/10/2025 (Approximate), Expires: 07/10/2025 [facility] Work Phone: Comment on above: Expected: 04/10/2025 (Approximate), Expires: 07/10/2025 Start: 04-09-2025 End: 04-09-2025 Patient encounter procedure 04/09/2025 9:15 AM EDT Office Visit [facility] [address] [place] [address] Damien Moran MD [address] [place] [address] 1yr f/u psa here [facility] Comment on above: 1yr f/u psa here Start: 04-02-2025 End: 04-02-2025 Patient encounter procedure 04/02/2025 9:45 AM EDT Office Visit [facility] [address] [place] [address] lab [facility] Comment on above: lab Start: 03-24-2025 Influenza vaccination [facility] Start: 01-23-2025 End: 01-23-2026 Basic metabolic 1998 panel - Serum or Plasma Basic metabolic panel Lab Routine Annual physical exam Expected: 01/23/2025 (Approximate), Expires: 01/23/2026 [facility] Comment on above: Expected: 01/23/2025 (Approximate), Expires: 01/23/2026 Start: 01-23-2025 End: 01-23-2026 CBC W Auto Differential panel - Blood CBC and differential Lab Routine Annual physical exam Expected: 01/23/2025 (Approximate), Expires: 01/23/2026 [facility] Comment on above: Expected: 01/23/2025 (Approximate), Expires: 01/23/2026 Start: 01-23-2025 End: 01-23-2026 Hemoglobin A1c/Hemoglobin.total in Blood Hemoglobin A1c Lab Routine Annual physical exam Expected: 01/23/2025 (Approximate), Expires: 01/23/2026 [facility] Work Phone: Comment on above: Expected: 01/23/2025 (Approximate), Expires: 01/23/2026 Start: 01-23-2025 End: 01-23-2026 Hepatic function 2000 panel - Serum or Plasma Hepatic function panel Lab Routine Annual physical exam Expected: 01/23/2025 (Approximate), Expires: 01/23/2026 [facility] Comment on above: Expected: 01/23/2025 (Approximate), Expires: 01/23/2026 Start: 01-23-2025 End: 01-23-2026 Lipid 1996 panel - Serum or Plasma Lipid panel Lab Routine Annual physical exam Expected: 01/23/2025 (Approximate), Expires: 01/23/2026 [facility] Comment on above: Expected: 01/23/2025 (Approximate), Expires: 01/23/2026 Start: 01-23-2025 End: 01-23-2026 Thyrotropin [Units/volume] in Serum or Plasma TSH Lab Routine Annual physical exam Expected: 01/23/2025 (Approximate), Expires: 01/23/2026 [facility] Comment on above: Expected: 01/23/2025 (Approximate), Expires: 01/23/2026 Start: 01-23-2025 End: 01-23-2025 Patient encounter procedure 01/23/2025 9:45 AM EDT Office Visit [facility] [address] [place] [phone] Bienvenido Macias MD [address] [place] [phone] Arrived [facility] Comment on above: Arrived Start: 12-17-2024 End: 12-17-2024 Patient encounter procedure 12/17/2024 10:00 AM EDT Office Visit [facility] [address] [place] [phone] Bienvenido Macias MD [address] [place] [phone] [facility] Start: 03-24-2024 Covid-19 Vaccine ( season) Covid-19 Vaccine () [facility] Start: 03-24-2024 Influenza vaccination Influenza Vacc ine (#1) [facility] Start: 07-24-2023 Advance Directive Discussion Advance Directive Discussion [facility] Start: 10-14-2022 Adult depression screening assessment DEPRESSION SCREENING [facility] Start: 04-11-2022 End: 04-04-2023 Prostate specific Ag [Mass/volume] in Serum or Plasma PSA/PROSTSPECAG DIAG Lab Routine Prostate cancer (HCC) Expected: 04/11/2022, Expires: 04/04/2023 [facility] Work Phone: Comment on above: Expected: 04/11/2022 , Expires: 04/04/2023 Start: 03-24-2022 Influenza vaccination C [facility] Start: 01-26-2022 End: 03-28-2022 Prostate specific Ag [Mass/volume] in Serum or Plasma PSA/PROSTSPECAG DIAG Lab Routine Malignant neoplasm of prostate (HCC) Expected: 01/26/2022, Expires: 03/28/2022 [facility] Work Phone: Comment on above: Expected: 01/26/2022 , Expires: 03/28/2022 Start: 10-16-2021 COVID-19 VACCINE (4 - Booster for Moderna series) COVID-19 VACCINE (4 - Booster for Moderna series) [facility] Start: 07-24-2021 ADVANCE DIRECTIVE DISCUSSION ADVANCE DIRECTIVE DISCUSSION [facility] Start: 07-24-2021 DEPRESSION ASSESSMENT DEPRESSION ASS ESSMENT [facility] Start: 03-24-2021 Influenza vaccination INFLUENZA (#1) [facility] Start: 02-24-2021 Pneumococcal Vaccine : 65+ (1 of 1 - PCV) Pneumococcal Vaccine: 65+ (1 of 1 - PCV) [facility] Start: 02-24-2021 Pneumococcal Vaccine : 65+ Years (1 of 1 - PCV) Pneumococcal Vaccine: 65+ Years (1 of 1 - PCV) [facility] Start: 02-24-2021 PNEUMOCOCCAL: 65+ (1 - PCV) PNEUMOCOCCAL: 65+ (1 - PCV) [facility] Start: 02-24-2021 PNEUMOVAX AGE 65 AND OVER WITH 5YR LOOKBACK (#1) PNEUMOVAX AGE 65 AND OVER WITH 5YR LOOKBACK (#1) [facility] Start: 02-05-2021 COVID-19 VACCINE (3 - Booster for Moderna series) COVID-19 VACCINE (3 - Booster for Moderna series) [facility] Start: 2016 RSV Vaccine (1 - 1-d ose 60+ series) RSV Vaccine (1 - 1-dose 60+ series) [facility] Start: 02-24-2006 Pneumococcal Vaccine : 65+ Years (1 of 1 - PCV) Pneumococcal Vaccine: 65+ Years (1 of 1 - PCV) [facility] Start: 02-24-2006 SHINGRIX VACCINE (1 of 2) SHINGRIX VACCINE (1 of 2) [facility] Start: 02-24-2001 COLOGUARD (FIT-DNA) COLOGUARD (FIT-D NA) [facility] Start: 02-24-2001 Colonoscopy COLONOSCOPY [facility] Start: 02-24-2001 COLORECTAL CANCER SCREENING COLORECTAL CANCER SCREENING [facility] Start: 02-24-[address] [facility] Start: 02-24-2001 DIABETES SCREEN DIABETES SCREEN [facility] Start: 02-24-2001 Diabetes Screening Diabetes Screenin g [facility] Start: 02-24-2001 FECAL OCCULT BLOOD FECAL OCCULT BLOO D [facility] Start: 02-24-2001 Screening for malign ant neoplasm of colon [facility] Start: 02-24-2001 SIGMOIDOSCOPY SIGMOIDOSCOPY [facility] Start: 02-24-1991 Lipid panel Lipid Screening [facility] Start: 02-24-1991 LIPID SCREEN LIPID SCREEN [facility] Start: 02-24-1975 Urine microalbumin profile [facility] Start: 02-24-1974 Anxiety Screening Anxiety Screening [facility] Start: 02-24-1974 Depression Screening Depression Scre ening [facility] Start: 02-24-1974 HEPATITIS C SCREENING HEPATITIS C [facility] Start: 02-24-1974 Hepatitis C screening Hepatitis C Sc [facility] Start: 02-24-1974 HIV SCREENING HIV SCREENING [facility] Start: 1955 Screening for malign ant neoplasm of colon [facility] Immunizations Immunization Date Immunization Notes Care Provider [facility] 06-04-2022 SARS-CoV-2 (COVID-19 ) [id number] Jean Marie ROSA [facility] 12-18-2021 SARS-CoV-2 (COVID-19 ) mRNA-1273 vaccine Jean Marie ROSA [facility] 06-18-2021 SARS-CoV-2 (COVID-19 ) Ad26 vaccine, recombinant Jean Marie ROSA [facility] 12-11-2020 COVID-19 vaccine, fu ll dose (MODERNA) Brionna York APRN.COREY Work Phone: [facility] 11-20-2020 SARS-CoV-2 (COVID-19 ) mRNA-1273 vaccine Jean Marie ROSA [facility] 11-13-2020 COVID-19 vaccine, fu ll dose (MODERNA) Brionna York APRN.CNP Work Phone: [facility] NEGATED: Highlighted row has not occurred!10-30-2020 influenza virus vaccine, unspecified formulation Jean Marie ROSA [facility] NEGATED: Highlighted row has not occurred!09-27-2019 influenza virus vaccine, live, attenuated, for intranasal use Jean Marie ROSA [facility] Payers Date Payer Category Payer [facility] er [id number] 2022 Unknown [id number] 2020 Private Health Insurance [facility] CHOICE PLUS [id number] 2020-Present [phone] [address] [place] [address] O [id number] 2020 Private Health Insurance [id number] 1959 Private Health Insurance [id number] 1959 Unknown [id number] 1956 Unknown [id number] 1956 Unknown [id number] 1956 Unknown [id number] 1956 Unknown [id number] 1956 Unknown [id number] Social History Date Type Detail Facility Start: 12-30-2020 End: 04-02-2025 Tobacco smoking status NHIS Never smoked tobacco [facility] Start: 12-30-2020 End: 12-12-2023 Tobacco use and exposure Smokeless tobacco non-user [facility] Start: 04-15-2021 End: 04-13-2022 Alcohol intake Current drinker of alcohol (finding) [facility] Start: 12-30-2020 History SDOH Alcohol Comment social [facility] Start: 1955 Sex Assigned At Not on file [facility] Start: 10-04-2021 End: 04-13-2022 Exposure to SARS-CoV-2 (event) Not sure [facility] Tobacco smoking status Never [facility] Start: 04-13-2022 End: 01-23-2025 Sex Assigned At Male [facility] Start: 04-13-2022 End: 01-23-2025 History of Social function [facility] Sexual Orientation [facility] Start: 01-16-2019 Sex Male (finding) [facility] Functional Status Date Assessment Result Facility 03-27-2024 Functional Status N/A [facility] 03-22-2023 Functional Status N/A [facility] Clinical Notes 10-14-2021 to 04-02-2025 Bienvenido Macias MD - 01/23/2025 10:24 AM Linda Macias MD - 01/23/2025 9:45 AM Damien Hernandez MD - 04/10/2024 10:00 AM Marine Grimes RN - 04/10/2024 9:50 AM EDT Note Date & Type Note Facility 04-02-2025 Hospital Discharge instructions Patient Education 04/02/2025 14:04:45 Hematuria, Adult Hematuria, Adult Hematuria is blood in the urine. Blood may be visible in the urine, or it may be identified with a test. This condition can be caused by infections of the bladder, urethra, kidney, or prostate. Other possible causes include: Kidney stones. Cancer of the urinary tract. Too much calcium in the urine. Conditions that are passed from parent to child (inherited conditions). Exercise that requires a lot of energy. Infections can usually be treated with medicine, and a kidney stone usually will pass through your urine. If neither of these is the cause of your hematuria, more tests may be needed to identify the cause of your symptoms. It is very important to tell your health care provider about any blood in your urine, even if it is painless or the blood stops without treatment. Blood in the urine, when it happens and then stops and then happens again, can be a symptom of a very serious condition, including cancer. There is no pain in the initial stages of many urinary cancers. Follow these instructions at home: Medicines Take nwmc-bnx-ogwtnke and prescription medicines only as told by your health care provider. If you were prescribed an antibiotic medicine, take it as told by your health care provider. Do not stop taking the antibiotic even if you start to feel better. Eating and drinking Drink enough fluid to keep your urine pale yellow. It is recommended that you drink 3 4 quarts (2.8 3.8 L) a day. If you have been diagnosed with an infection, drinking cranberry juice in addition to large amounts of water is recommended. Avoid caffeine, tea, and carbonated beverages. These tend to irritate the bladder. Avoid alcohol because it may irritate the prostate (in males). General instructions If you have been diagnosed with a kidney stone, follow your health care provider's instructions about straining your urine to catch the stone. Empty your bladder often. Avoid holding urine for long periods of time. If you are female: ?After a bowel movement, wipe from front to back and use each piece of toilet paper only once. ?Empty your bladder before and after sex. Pay attention to any changes in your symptoms. Tell your health care provider about any changes or any new symptoms. It is up to you to get the results of any tests. Ask your health care provider, or the department that is doing the test, when your results will be ready. Keep all follow-up visits. This is important. Contact a health care provider if: You develop back pain. You have a fever or chills. You have nausea or vomiting. Your symptoms do not improve after 3 days. Your symptoms get worse. Get help right away if: You develop severe vomiting and are unable to take medicine without vomiting. You develop severe pain in your back or abdomen even though you are taking medicine. You pass a large amount of blood in your urine. You pass blood clots in your urine. You feel very weak or like you might faint. You faint. Summary Hematuria is blood in the urine. It has many possible causes. It is very important that you tell your health care provider about any blood in your urine, even if it is painless or the blood stops without treatment. Take xvdg-vah-viyqryn and prescription medicines only as told by your health care provider. Drink enough fluid to keep your urine pale yellow. This information is not intended to replace advice given to you by your health care provider. Make sure you discuss any questions you have with your health care provider. Document Revised: 03/10/2021 Document Reviewed: 03/10/2021 [employer] Patient Education 2023 [employer]. Follow Up Care 03/27/2024 13:42:52 With:KITTY PINEDO, Jean Marie Khan, URL Address: [address] [place] [phone] When: Unknown Comments:1 yr w/ PSA [facility] Tariq 04-02-2025 Note Patient Education Urology Hematuria, Adult Hematuria is blood in the urine. Blood may be visible in the urine, or it may be identified with a test. This condition can be caused by infections of the bladder, urethra, kidney, or prostate. Other possible causes include: ??? Kidney stones. ??? Cancer of the urinary tract. ??? Too much calcium in the urine. ??? Conditions that are passed from parent to child (inherited conditions). ??? Exercise that requires a lot of energy. Infections can usually be treated with medicine, and a kidney stone usually will pass through your urine. If neither of these is the cause of your hematuria, more tests may be needed to identify the cause of your symptoms. It is very important to tell your health care provider about any blood in your urine, even if it is painless or the blood stops without treatment. Blood in the urine, when it happens and then stops and then happens again, can be a symptom of a very serious condition, including cancer. There is no pain in the initial stages of many urinary cancers. Follow these instructions at home: Medicines ??? Take txby-ucj-jqwnsko and prescription medicines only as told by your health care provider. ??? If you were prescribed an antibiotic medicine, take it as told by your health care provider. Do not stop taking the antibiotic even if you start to feel better. Eating and drinking ??? Drink enough fluid to keep your urine pale yellow. It is recommended that you drink 3?4 quarts (2.8?3.8 L) a day. If you have been diagnosed with an infection, drinking cranberry juice in addition to large amounts of water is recommended. ??? Avoid caffeine, tea, and carbonated beverages. These tend to irritate the bladder. ??? Avoid alcohol because it may irritate the prostate (in males). General instructions ??? If you have been diagnosed with a kidney stone, follow your health care provider's instructions about straining your urine to catch the stone. ??? Empty your bladder often. Avoid holding urine for long periods of time. ??? If you are female: ? After a bowel movement, wipe from front to back and use each piece of toilet paper only once. ? Empty your bladder before and after sex. ??? Pay attention to any changes in your symptoms. Tell your health care provider about any changes or any new symptoms. ??? It is up to you to get the results of any tests. Ask your health care provider, or the department that is doing the test, when your results will be ready. ??? Keep all follow-up visits. This is important. Contact a health care provider if: ??? You develop back pain. ??? You have a fever or chills. ??? You have nausea or vomiting. ??? Your symptoms do not improve after 3 days. ??? Your symptoms get worse. Get help right away if: ??? You develop severe vomiting and are unable to take medicine without vomiting. ??? You develop severe pain in your back or abdomen even though you are taking medicine. ??? You pass a large amount of blood in your urine. ??? You pass blood clots in your urine. ??? You feel very weak or like you might faint. ??? You faint. Summary ??? Hematuria is blood in the urine. It has many possible causes. ??? It is very important that you tell your health care provider about any blood in your urine, even if it is painless or the blood stops without treatment. ??? Take qiqf-zod-cxdalih and prescription medicines only as told by your health care provider. ??? Drink enough fluid to keep your urine pale yellow. This information is not intended to replace advice given to you by your health care provider. Make sure you discuss any questions you have with your health care provider. Document Revised: 03/10/2021 Document Reviewed: 03/10/2021 [employer] Patient Education ? 2023 [employer]. [place] 01-23-2025 History of Present illness Narrative Associated Problem(s): Annual physical exam Due for labs. Discussed proper diet and regular aerobic exercise. Need aerobic exercise 5-6 days a week for 30 minutes at a time. Smaller portions and limit total calories. Colonoscopy every 10 years. Tetanus every 10 years. Advised not to smoke. Images from the original note were not included. Subjective Patient ID: Christine Webster is a 69 y.o. male who presents for Annual Exam (wellness). Presents for annual PE. Patient feels well today. Weight down 3 pounds in past year. Active around house and with yard work. Tries to walk regularly. Changed diet and cut back on carbs. Tries to watch diet and eat healthy. Increased fruits and vegetables. Smaller portions and limits snacking. Tries to limit total daily calories. Due for labs. [...] Lipid panel TSH documented in this encounter [facility] 04-10-2024 History of Present illness Narrative Radiation Oncology - Follow Up Note PATIENT NAME: Christine Webster PATIENT DIAGNOSIS: Prostate adenocarcinoma, initial PSA 7.2, biopsy Pembroke score 3 + 3 = 6 (grade group 1), clinical stage T1c, N0, M0, stage I [cT1a-c/T2a, N0, M0, PSA <10, GG 1] (AJCC 8th ed.), s/p TRUS Random biopsy. Prostate cancer (C61), 2019 NCCN Risk Group: Low Risk Group RADIATION SUMMARY: 03/04/21 Prostate brachytherapy, I-125, 145 Gy INTERVAL HISTORY: Patient doing well denies significant new problems or concerns. PSA HISTORY: 03/13/23: 0.30 PSA (ng/mL) Date Value 03/19/2024 0.17 04/11/2022 0.43 04/12/2021 3.86 PSA. (no units) Date Value 01/26/2022 0.62 07/13/2021 1.18 ALLERGIES No Known Allergies amLODIPine (NORVASC) 10 mg tablet lisinopril-hydroCHLOROthiazide (PRINZIDE, ZESTORETIC) 20-25 mg per tablet REVIEW OF SYSTEMS: D/N = 5-6/1-2 Hematuria: none Dysuria: none Incontinence: none Urgency: mild Catheter use: none Medications to aid urination: no - Total AUA Score: 2 Bowel movement frequency: 1/day Bowel movement quality: normal Blood per rectum: none PHYSICAL EXAM: BP 167/82 Pulse 76 Temp 36.4 C (97.6 F) Resp 18 Wt 88.6 kg (195 lb 5.2 oz) SpO2 98% BMI 31.05 kg/m KPS:100 General appearance: Alert and oriented. No acute distress. Rectal exam def Extremities: No deformities, edema, skin discoloration, clubbing or cyanosis. Lymph Nodes: No cervical lymphadenopathy, No supraclavicular lymphadenopathy, No axillary lymphadenopathy. Skin: Skin color, texture, turgor normal, no suspicious rashes or lesions. ASSESSMENT/PLAN: Prostate adenocarcinoma, initial PSA 7.2, biopsy Dalton score 3 + 3 = 6 (grade group 1), clinical stage T1c, N0, M0, stage I [cT1a-c/T2a, N0, M0, PSA <10, GG 1] (AJCC 8th ed.), s/p TRUS Random biopsy. Prostate cancer (C61), 2019 NCCN Risk Group: Low Risk Group status post I-125 brachytherapy 03/04/2021 Doing well. PSA remains low. No significant post treatment related issues. Okay. I will plan to see patient back again in 1 year for follow-up. Signed by: Damien Moran MD cc: Bienvenido Macias MD ([facility]) [address] [place] [address] Portions of the above note extracted and edited from previous visit as well as active information included in the EMR. documented in this encounter [facility] 04-10-2024 Note HNO ID: [id number] Author: Damien MORAN MD Service: ? Author Type: Physician Type: Progress Notes Filed: 04/10/2024 10:00 Note Text: Radiation Oncology - Follow Up Note PATIENT NAME: Christine Webster PATIENT DIAGNOSIS: Prostate adenocarcinoma, initial PSA 7.2, biopsy Pembroke score 3 + 3 = 6 (grade group 1), clinical stage T1c, N0, M0, stage I [cT1a-c/T2a, N0, M0, PSA <10, GG 1] (AJCC 8th ed.), s/p TRUS Random biopsy. Prostate cancer (C61), 2019 NCCN Risk Group: Low Risk Group RADIATION SUMMARY: 03/04/21 Prostate brachytherapy, I-125, 145 Gy INTERVAL HISTORY: Patient doing well denies significant new problems or concerns. PSA HISTORY: 03/13/23: 0.30 PSA (ng/mL) Date Value 03/19/2024 0.17 04/11/2022 0.43 04/12/2021 3.86 PSA. (no units) Date Value 01/26/2022 0.62 07/13/2021 1.18 ALLERGIES No Known Allergies amLODIPine (NORVASC) 10 mg tablet lisinopril-hydroCHLOROthiazide (PRINZIDE, ZESTORETIC) 20-25 mg per tablet REVIEW OF SYSTEMS: D/N = 5-6/1-2 Hematuria: none Dysuria: none Incontinence: none Urgency: mild Catheter use: none Medications to aid urination: no - Total AUA Score: 2 Bowel movement frequency: 1/day Bowel movement quality: normal Blood per rectum: none PHYSICAL EXAM: BP 167/82 Pulse 76 Temp 36.4 ?C (97.6 ?F) Resp 18 Wt 88.6 kg (195 lb 5.2 oz) SpO2 98% BMI 31.05 kg/m? KPS:100 General appearance: Alert and oriented. No acute distress. Rectal exam def Extremities: No deformities, edema, skin discoloration, clubbing or cyanosis. Lymph Nodes: No cervical lymphadenopathy, No supraclavicular lymphadenopathy, No axillary lymphadenopathy. Skin: Skin color, texture, turgor normal, no suspicious rashes or lesions. ASSESSMENT/PLAN: Prostate adenocarcinoma, initial PSA 7.2, biopsy Pembroke score 3 + 3 = 6 (grade group 1), clinical stage T1c, N0, M0, stage I [cT1a-c/T2a, N0, M0, PSA <10, GG 1] (AJCC 8th ed.), s/p TRUS Random biopsy. Prostate cancer (C61), 2019 NCCN Risk Group: Low Risk Group status post I-125 brachytherapy 03/04/2021 Doing well. PSA remains low. No significant post treatment related issues. Okay. I will plan to see patient back again in 1 year for follow-up. Signed by: Damien Moran MD cc: Bienvenido Macias MD ([facility]) [address] [place] [address] Portions of the above note extracted and edited from previous visit as well as active information included in the EMR. [facility] 04-10-2024 Nurse Note AUA 2 Marine Pavon RN [facility] 04-10-2024 Nurse Note AUA 2 Marine Pavon RN documented in this encounter [facility] 03-27-2024 Hospital Discharge instructions Patient Education 03/27/2024 13:33:50 Cancer Screening for Males Cancer Screening for Males A cancer screening is a test or exam that checks for cancer. Work with your health care provider to create a cancer screening schedule that protects your health. Who should have screening? All people who are male should be considered for screening of certain cancers, including colorectal cancer, prostate cancer, lung cancer, and skin cancer. Your health care provider may recommend screenings for other types of cancer if: You have had cancer before. You have a family member with cancer. You have genes that could increase the risk of cancer. You have risk factors for certain cancers, such as current or past use of tobacco products or being overweight. What are the benefits of screening? Cancer screening is done to look for cancer in the very early stages, before it spreads and becomes harder to treat and before you would start to notice symptoms. Finding cancer early improves the chances of successful treatment. It may save your life. When should I be screened for cancer? When you should be screened for cancer depends on: Your age. Your medical history and your family's medical history. Certain lifestyle factors, such as smoking or other use of tobacco products. Environmental exposure, such as to asbestos. How is screening done? Colorectal cancer Colorectal cancer screening looks for cancer or for growths called polyps that often form before cancer starts. Tests to look for cancer or polyps include: Colonoscopy or flexible sigmoidoscopy. For these procedures, a flexible tube with a small camera is inserted into the rectum. CT colonography. This test uses X-rays and a contrast dye to check the colon for polyps. Tests to look for cancer in the stool (feces) include: Guaiac-based fecal occult blood test (FOBT). This test can find blood in stool. It can be done at home with a kit. Fecal immunochemical test (FIT). This test can find blood in stool. For this test, you will need to collect stool samples at home. Stool DNA test. This test looks for blood in stool and any changes in DNA that can lead to colon cancer. For this test, you will need to collect a stool sample at home and send it to a lab. All adults should have screenings starting at 45 years old and continuing through 75 years old. For males 76 85 years old, the decision to be screened should be based on a person's preferences, life expectancy, overall health, and prior screening history. Your health care provider may recommend screening before 45 years old. You will have tests every 1 10 years, depending on your results and the type of screening test. People at increased risk should start screening at an earlier age. Talk with your health care provider about which screening test is right for you and how often you should be screened. Prostate cancer Prostate cancer screening is done with blood tests and a digital rectal exam. During this exam, a health care provider uses a gloved finger to check prostate size. You may need to be screened for prostate cancer if: You have risk factors for prostate cancer, such as being an person or having a close family member with prostate cancer. You have had gene changes or a genetic condition that was passed on to you from a parent (inherited). These gene changes or genetic conditions include BRCA1 or BRCA2 gene mutations or Crump syndrome. You have symptoms of prostate cancer, such as problems urinating or problems getting or keeping an erection (erectile dysfunction). When you have been screened for prostate cancer, future screening may be recommended based on the results of your blood tests. Prostate cancer screening for males with average risk may start at 50 years old. Males with risk factors may need to be screened earlier, at 40 45 years old. Talk with your health care provider about whether screening is right for you and, if so, how often you should be screened. Lung cancer Lung cancer screening is done with a CT scan that looks for abnormal changes in the lungs. Discuss lung cancer screening with your health care provider if you are 50 80 years old and if any of the following apply to you: You currently smoke. You used to smoke heavily. You have a smoking history of 1 pack of cigarettes a day for 20 years or 2 packs a day for 10 years. You may need to be screened every year if you smoke heavily or if you used to smoke. Skin cancer Skin cancer screening is done by checking the skin for unusual moles or spots and any changes in existing moles. Your health care provider should check your skin for signs of skin cancer at every physical exam. You should check your skin every month and tell your health care provider right away if anything looks unusual. Males with a [id number]-hznqnw risk for skin cancer may want to see a quill skinner (missile inspector preflight) for an annual body check. Where to find more information [place] [employer]: cancer.org Centers for Disease Control and Prevention: cdc.gov National Cancer [place]: cancer.gov Contact a health care provider if: You have concerns about any signs or symptoms of cancer. These may include: ?Skin problems. You may have: ?Moles of an unusual shape or color. ?Changes in existing moles. ?A sore on your skin that does not heal. ?Tiredness (fatigue) that does not go away. ?Losing weight without trying. ?Blood in your urine or stool. ?Problems with urination. You may have: ?Changes in urination habits. ?Painful urination. ?Painful ejaculation. ?Problems with coughing or breathing. These may include: ?Coughing or trouble breathing that does not go away. ?Coughing up blood. ?Frequent pain or cramping in your abdomen. This information is not intended to replace advice given to you by your health care provider. Make sure you discuss any questions you have with your health care provider. Document Revised: 07/18/2023 Document Reviewed: 01/30/2023 [employer] Patient Education 2023 [employer]. Follow Up Care 03/22/2023 13:33:53 With:KITTY PINEDO, Jean Marie Khan, URL Address: [facility] [address] , [place] [address]- When: Unknown [facility] 03-22-2023 Hospital Discharge instructions Patient Education 03/22/2023 13:20:22 Cancer Screening for Men Cancer Screening for Men A cancer screening is a test or exam that checks for cancer. Your health care provider will recommend specific cancer screenings based on your age, medical history (including risk factors), and family history of cancer. Work with your health care provider to create a cancer screening schedule that protects your health. Who should have screening? All men should be considered for screening of certain cancers, including colorectal cancer, prostate cancer, lung cancer, and skin cancer. Your health care provider may recommend screenings for other types of cancer if: You had cancer before. You have a family member with cancer. You have abnormal genes that could increase the risk of cancer. You have risk factors for certain cancers, such as current or past use of tobacco products, or being overweight. When you should be screened for cancer depends on: Your age. Your medical history and your family's medical history. Certain lifestyle factors, such as smoking or other use of tobacco products. Environmental exposure, such as to asbestos. How is screening done? Colorectal cancer All adults should have screenings starting at age 45 and continuing until age 75. Your health care provider may recommend screening before age 45. You will have tests every 1 10 years, depending on your results and the type of screening test. People at increased risk should start screening at an earlier age. Talk with your health care provider about which screening test is right for you and how often you should be screened. Colorectal cancer screening looks for cancer or for growths called polyps that often form before cancer starts. Tests to look for cancer or polyps include: Colonoscopy or flexible sigmoidoscopy. For these procedures, a flexible tube with a small camera is inserted into the rectum. CT colonography. This test uses X-rays and a contrast dye to check the colon for polyps. If a polyp is found, you may need to have a colonoscopy so the polyp can be located and removed. Tests to look for cancer in the stool (feces) include: Guaiac-based fecal occult blood test (FOBT). This test can find blood in stool. It can be done at home with a kit. Fecal immunochemical test (FIT). This test can find blood in stool. For this test, you will need to collect stool samples at home. Stool DNA test. This test looks for blood in stool and any changes in DNA that can lead to colon cancer. For this test, you will need to collect a stool sample at home and send it to a lab. Prostate cancer Prostate cancer screening for men with average risk may start at age 50. Men with risk factors may need to be screened earlier, at ages 40 45. Talk with your health care provider about whether screening is right for you and, if so, how often you should be screened. Prostate cancer screening is done with blood tests and a digital rectal exam. During this exam, a health care provider uses a gloved finger to check prostate size. You may need to be screened for prostate cancer if: You have risk factors for prostate cancer, such as being or having a close family member with prostate cancer. You have had gene changes or a genetic condition that was passed on to you from a parent (inherited). These gene changes or genetic conditions include BRCA1 or BRCA2 gene mutations or Crump syndrome. You have symptoms of prostate cancer, such as problems urinating or problems getting or keeping an erection (erectile dysfunction). When you have been screened for prostate cancer, future screening may be recommended based on the results of your blood tests. Lung cancer Lung cancer screening is done with a CT scan that looks for abnormal changes in the lungs. Discuss lung cancer screening with your health care provider if you are 50 80 years old and if any of the following apply to you: You currently smoke. You used to smoke heavily. You have a smoking history of 1 pack of cigarettes a day for 20 years or 2 packs a day for 10 years. You have quit smoking within the past 15 years. You may need to be screened every year if you smoke heavily or if you used to smoke. Skin cancer Skin cancer screening is done by checking the skin for unusual moles or spots and any changes in existing moles. Your health care provider should check your skin for signs of skin cancer at every physical exam. You should check your skin every month and tell your health care provider right away if anything looks unusual. Men with a nqhhwq-zuep-erzhez risk for skin cancer may want to see a quill skinner (missile inspector preflight) for an annual body check. What are the benefits of screening? Cancer screening is done to look for cancer in the very early stages, before it spreads and becomes harder to treat and before you would start to notice symptoms. Finding cancer early improves the chances of successful treatment. It may save your life. Where to find more information [place] [employer]: www.cancer.org Centers for Disease Control and Prevention: www.cdc.gov National Cancer [place]: www.cancer.gov Contact a health care provider if: You have concerns about any signs or symptoms of cancer. These may include: Skin problems. You may have: ?Moles of an unusual shape or color. ?Changes in existing moles. ?A sore on your skin that does not heal. Tiredness (fatigue) that does not go away. Losing weight without trying. Blood in your urine or stool. Problems with urination. You may have: ?Changes in urination habits. ?Painful urination. Painful ejaculation. Problems with coughing or breathing. These may include: ?Coughing or trouble breathing that does not go away. ?Coughing up blood. Frequent pain or cramping in your abdomen. Summary Your health care provider will recommend specific cancer screenings based on your age, medical history, and family history of cancer. Work with your health care provider to create a cancer screening schedule that protects your health. Finding cancer early improves the chances of successful treatment. It may save your life. Contact a health care provider if you have concerns about any signs or symptoms of cancer. This information is not intended to replace advice given to you by your health care provider. Make sure you discuss any questions you have with your health care provider. Document Revised: 12/06/2021 Document Reviewed: 06/05/2020 [employer] Patient Education 2022 [employer]. Follow Up Care 01/26/2022 12:39:05 With:KITTY PINEDO, Jean Marie Khan, URL Address: [facility] [address], [place] [address]- When: Unknown [facility] 04-13-2022 Nurse Note AUA= 7 documented in this encounter [facility] 04-13-2022 History of Present illness Narrative Radiation Oncology - Follow Up Note PATIENT NAME: Christine Webster PATIENT DIAGNOSIS: Prostate adenocarcinoma, initial PSA 7.2, biopsy Pembroke score 3 + 3 = 6 (grade group 1), clinical stage T1c, N0, M0, stage I [cT1a-c/T2a, N0, M0, PSA <10, GG 1] (AJCC 8th ed.), s/p TRUS Random biopsy. Prostate cancer (C61), 2019 NCCN Risk Group: Low Risk Group RADIATION SUMMARY: 03/04/21 Prostate brachytherapy, I-125, 145 Gy INTERVAL HISTORY: Patient doing well denies significant new problems or concerns. PSA HISTORY: PSA (ng/mL) Date Value 04/11/2022 0.43 04/12/2021 3.86 PSA. (no units) Date Value 01/26/2022 0.62 07/13/2021 1.18 ALLERGIES No Known Allergies amLODIPine (NORVASC) 10 mg tablet lisinopril-hydroCHLOROthiazide (PRINZIDE, ZESTORETIC) 20-25 mg per tablet REVIEW OF SYSTEMS: D/N = 5-6/1-2 Hematuria: none Dysuria: none Incontinence: none Urgency: mild Catheter use: none Medications to aid urination: no - Total AUA Score: 7 Bowel movement frequency: 1/day Bowel movement quality: normal Blood per rectum: none PHYSICAL EXAM: There were no vitals taken for this visit. KPS:100 General appearance: Alert and oriented. No acute distress. Abdomen: Normal abdominal exam, Abdomen soft, non-tender. No masses, organomegaly. Rectal exam def Extremities: No deformities, edema, skin discoloration, clubbing or cyanosis. Lymph Nodes: No cervical lymphadenopathy, No supraclavicular lymphadenopathy, No axillary lymphadenopathy. Skin: Skin color, texture, turgor normal, no suspicious rashes or lesions. ASSESSMENT/PLAN: Prostate adenocarcinoma, initial PSA 7.2, biopsy Dalton score 3 + 3 = 6 (grade group 1), clinical stage T1c, N0, M0, stage I [cT1a-c/T2a, N0, M0, PSA <10, GG 1] (AJCC 8th ed.), s/p TRUS Random biopsy. Prostate cancer (C61), 2019 NCCN Risk Group: Low Risk Group status post I-125 brachytherapy 03/04/2021 Patient continues to do well, now a year out from brachytherapy implant with low PSA that continues to decrease. No post implant related problems. Patient has continued follow-up with Dr. Rosa. I will plan to see patient back again in 1 year for follow-up. Signed by: Damien Moran MD cc: Bienvenido Macias MD ([facility]) [address] [place] [address] Portions of the above note extracted and edited from previous visit as well as active information included in the EMR. documented in this encounter [facility] 04-05-2022 Miscellaneous Notes Please sign pended PSA order for patients upcoming follow up. Previous order is . Thanks Dayana Charles LPN documented in this encounter [facility] 10-14-2021 History of Present illness Narrative Patient seen and examined by Dr. Moran today. Patient was given treatment summary and survivorship care plan for prostate cancer. Brionna York APRN.COREY documented in this encounter [facility] 10-14-2021 History of Present illness Narrative Radiation Oncology - Follow Up Note PATIENT NAME: Christine Webster PATIENT DIAGNOSIS: Prostate adenocarcinoma, initial PSA 7.2, biopsy Dalton score 3 + 3 = 6 (grade group 1), clinical stage T1c, N0, M0, stage I [cT1a-c/T2a, N0, M0, PSA <10, GG 1] (AJCC 8th ed.), s/p TRUS Random biopsy. Prostate cancer (C61), 2019 NCCN Risk Group: Low Risk Group RADIATION SUMMARY: 03/04/21 Prostate brachytherapy, I-125, 145 Gy INTERVAL HISTORY: Doing well. Denies new problems. Bladder function at baseline pretreatment levels. PSA HISTORY: PSA (ng/mL) Date Value 04/12/2021 3.86 PSA. (no units) Date Value 07/13/2021 1.18 ALLERGIES No Known Allergies amLODIPine (NORVASC) 10 mg tablet lisinopril-hydroCHLOROthiazide (PRINZIDE, ZESTORETIC) 20-25 mg per tablet REVIEW OF SYSTEMS: D/N = 5-6/1-2 Hematuria: none Dysuria: none Incontinence: none Urgency: mild Catheter use: none Medications to aid urination: no - Total AUA Score: 6 Bowel movement frequency: 1/day Bowel movement quality: normal Blood per rectum: none PHYSICAL EXAM: BP 177/90 Pulse 96 Temp 36.2 C (97.1 F) Resp 16 Wt 104.8 kg (231 lb) SpO2 95% BMI 36.73 kg/m KPS:100 General appearance: Alert and oriented. No acute distress. Abdomen: Normal abdominal exam, Abdomen soft, non-tender. No masses, organomegaly. Rectal exam def Extremities: No deformities, edema, skin discoloration, clubbing or cyanosis. Lymph Nodes: No cervical lymphadenopathy, No supraclavicular lymphadenopathy, No axillary lymphadenopathy. Skin: Skin color, texture, turgor normal, no suspicious rashes or lesions. ASSESSMENT/PLAN: Prostate adenocarcinoma, initial PSA 7.2, biopsy Dalton score 3 + 3 = 6 (grade group 1), clinical stage T1c, N0, M0, stage I [cT1a-c/T2a, N0, M0, PSA <10, GG 1] (AJCC 8th ed.), s/p TRUS Random biopsy. Prostate cancer (C61), 2019 NCCN Risk Group: Low Risk Group status post I-125 brachytherapy 03/04/2021 Doing well. Excellent PSA response after brachytherapy. Has continued surveillance scheduled with Dr. Rosa. Plan to see patient back in 6 months for further postradiation follow-up. Signed by: Damien Moran MD cc: Bienevnido Macias MD ([facility]) [address] [place] [address] Portions of the above note extracted and edited from previous visit as well as active information included in the EMR. documented in this encounter [facility] 10-14-2021 Nurse Note AUA 6 Marine Pavon RN documented in this encounter [facility] Evaluation + Plan note Future Appointments Appointment Date:03/27/2024 01:00:00 PM Scheduled Provider:Jean Marie ROSA MD Location:[facility] Appointment Type:URO Office Visit Diagnostic Tests PendingPSA Total 03/22/23 [facility] Evaluation + Plan note Future Appointments Appointment Date:04/02/2025 01:00:00 PM Scheduled Provider:Jean Marie ROSA MD Location:[facility] Appointment Type:URO Office Visit Diagnostic Tests PendingPSA Total 03/27/24 [facility] Evaluation + Plan note Future Appointments Appointment Date:04/08/2026 08:00:00 AM Scheduled Provider:Jean Marie ROSA MD Location:[facility] Appointment Type:URO Office Visit Diagnostic Tests PendingUrinalysis with Micro 04/02/25PSA Total 04/02/25 [facility] Evaluation note Diagnosis Prostate cancer (HCC) Malignant neoplasm of prostate [facility] Diagnosis Malignant neoplasm of prostate (HCC)- Primary Malignant neoplasm of prostate [facility] Diagnosis Prostate cancer (HCC)- Primary Malignant neoplasm of prostate [facility] Diagnosis Malignant neoplasm of prostate (HCC)- Primary Malignant neoplasm of prostate [facility] Diagnosis History of prostate cancer- Primary Personal history of malignant neoplasm of prostate [facility] Diagnosis Annual physical exam- Primary Routine general medical examination at a health care facility Essential hypertension, benign Essential hypertension, benign History of prostate cancer Personal history of malignant neoplasm of prostate Annual physical exam- Primary Routine general medical examination at a health care facility [facility] Narrative No data available for this section [facility] Progress note No data available for this section [facility] Summary Purpose Family History No Family History Records FoundNo Family History Records Found No data available for this section No Family History Records FoundNo Family History Records Found No data available for this section No Family History Records Found Advance Directives No Advanced Directives Records FoundNo Advanced Directives Records FoundNo Advanced Directives Records FoundNo Advanced Directives Records FoundNo Advanced Directives Records Found Additional Source Comments (unrecognized sect ion and content) No Status Records FoundNo Status Records FoundNo Status Records FoundNo Status Records FoundNo Status Records Found INFORMATION SOURCE (unrecogn ized section and content) DATE CREATED AUTHOR 05/09/2019 [facility] DATE CREATED AUTHOR AUTHOR'S ORGANIZ ATION 12/04/2022 [facility] DATE CREATED AUTHOR AUTHOR'S ORGANIZ ATION 01/25/2025 [facility] DATE CREATED AUTHOR AUTHOR'S ORGANIZ ATION 03/28/2025 [facility] DATE CREATED AUTHOR AUTHOR'S ORGANIZ ATION 04/03/2025 [facility] Source Comments (unrecognize d section and content) In the event this informatio n is protected by the Federal Confidentiality of Alcohol and Drug Abuse Patient Records regulations: The Federal rules restrict any use of the information to criminally investigate or prosecute any alcohol or drug abuse patient.[facility] the event this information is protected by the Federal Confidentiality of Alcohol and Drug Abuse Patient Records regulations: The Federal rules restrict any use of the information to criminally investigate or prosecute any alcohol or drug abuse patient.[facility] the event this information is protected by the Federal Confidentiality of Alcohol and Drug Abuse Patient Records regulations: The Federal rules restrict any use of the information to criminally investigate or prosecute any alcohol or drug abuse patient.[facility] the event this information is protected by the Federal Confidentiality of Alcohol and Drug Abuse Patient Records regulations: The Federal rules restrict any use of the information to criminally investigate or prosecute any alcohol or drug abuse patient.[facility] the event this information is protected by the Federal Confidentiality of Alcohol and Drug Abuse Patient Records regulations: The Federal rules restrict any use of the information to criminally investigate or prosecute any alcohol or drug abuse patient.[facility] Reason for Visit (unrecogniz ed section and content) Reason Comments Cancer Survivorship Reason Comments Prostate Cancer Reason Comments Orders Reason Comments Annual Exam wellness Care Teams (unrecognized sec tion and content) Photographer Scientific Relationship Specialty Start Date End Date Cortezvictor hugocecile Bienvenido Deborah [address] [place] [address] PCP - General Family Practice 12/30/20 Cb Salcido Jr. [address] [place] [address] Referring Urology 12/15/20 Photographer Scientific Relationship Specialty Start Date End Date Ariel Bienvenido Cabrera [address] [place] [address] PCP - General Family Practice 12/30/20 Cb Salciod Jr. [address] [place] [address] Referring Urology 12/15/20 Photographer Scientific Relationship Specialty Start Date End Date CortezBienvenido johnson [address] [place] [address] PCP - General Family Practice 12/30/20 Cb Salcido Jr. [address] [place] [address] Referring Urology 12/15/20 Photographer Scientific Relationship Specialty Start Date End Date Bienvenido Macias [address] [place], [place] [id number] PCP - General Family Medicine 12/30/20 Cb Salcido Jr. [address] [place] [address] Referring Urology 12/15/20 Photographer Scientific Relationship Specialty Start Date End Date Bienvenido Macias [address] [place], [place] [id number] PCP - General Family Medicine 12/30/20 Cb Salcido Jr. [address] [place] [address] Referring Urology 12/15/20 Photographer Scientific Relationship Specialty Start Date End Date Bienvenido Macias MD [address] [place] [id number] PCP - General Family Medicine 12/12/23 Bienvenido Macias MD [address] [place] [id number] PCP - [facility] 01/22/24 Photographer Scientific Relationship Specialty Start Date End Date Bienvenido Macias MD [address] [place] [id number] PCP - General Family Medicine 12/12/23 Photographer Scientific Relationship Specialty Start Date End Date Bienvenido Macias MD [address] [place] [id number] PCP - General Family Medicine 12/12/23 Photographer Scientific Relationship Specialty Start Date End Date Bienvenido Macias MD [address] [place] [phone] PCP - General Family Medicine 12/12/23 FOR RECORDS PERTAINING TO PATIENTS WHO ARE OR HAVE BEEN ENROLLED IN A CHEMICAL DEPENDENCY/SUBSTANCEABUSE PROGRAM, SOME INFORMATION MAY BE OMITTED. This clinical summary was aggregated from multiple sources. Caution should be exercised in using it in the provision of clinical care. This summary normalizes information from multiple sources, and as a consequence, information in this document may materially change the coding, format and clinical context of patient data. In addition, data may be omitted in some cases. CLINICAL DECISIONS SHOULD BE BASED ON THE PRIMARY CLINICAL RECORDS. [employer] provides no warranty or guarantee of the accuracy or completeness of information in this document.
[2025-04-03 11:28] LABS: Glucose Urine UA NEGATIVE (NEGATIVE)
[2025-04-03 12:13] LABS: Cast Seen? NONE SEEN #/LPF (NONE SEEN); Crystals Seen? None Seen #/HPF (None Seen)
== END 2025-04-03 10:04 | disposition home or self-care (01) ==
LOC: LAB 10:04
PROVIDERS: PCP Family Medicine; Visit Provider Urology
DX: R31.29 Other microscopic hematuria (principal)
CPT/HCPCS: 81001